=== PATIENT | female | born 1935 | race Caucasian/White ===

== ENCOUNTER 2017-06-18 08:23 | Inpatient (IN) | payer MEDICARE, SELFPAY ==
[2017-06-18] VITALS (20 sets, daily range): BP systolic 106–155; BP diastolic 46–82; PULSE 84–143; RESP 14–23; TEMP 37.2–37.7; O2SAT 92–97; BMI 28.3; BMI 26.2; BMI 26.3
[2017-06-18 08:31] LABS: Bedside Glucose 115 mg/dL (70-110)
--- NOTE | 2017-06-18 08:58 | CT_ITS ---
STUDY: CT BRAIN WITHOUT CONTRAST REASON FOR EXAM: Female, 82 years old. LEFT FACIAL DROOP,INTERMITTENT SPEECH DIFFICULTY -- HX-BREAST CA, RECTAL CA,MALIGNANT MELANOMA -- TIA,CVA RADIATION DOSAGE (If Supplied By Facility): CTDIvol = ( 20.80 ) mGy, DLP = ( 360.87 ) mGycm TECHNIQUE: Transaxial CT imaging of the brain was performed without administration of intravenous contrast material. Individualized dose optimization techniques were used for this CT. COMPARISON: October 05, 2016 FINDINGS: Again noted are the bilateral cerebral encephalomalacia and gliosis most prominent at the right parietal region, consistent with chronic infarcts. There is cerebral atrophy with widening of the extra-axial spaces and ventricular dilatation. There are areas of decreased attenuation within the white matter tracts of the supratentorial brain, consistent with microvascular disease changes. There is no intracranial hemorrhage. Normal soft tissue structures. Normal visualized paranasal sinuses. CT/Brain/Head without Contrast IMPRESSION: No acute intracranial abnormality. Bilateral chronic infarcts. Electronically Signed: Hanane Summers MD at 10:08 EDT Tel , Service support ,
--- NOTE | 2017-06-18 08:58 | EKG12_ITS ---
Test Reason : NEURO S/SX Blood Pressure : / mmHG Vent. Rate : 096 BPM Atrial Rate : 394 BPM P-R Int : 000 ms QRS Dur : 078 ms QT Int : 362 ms P-R-T Axes : 000 009 150 degrees QTc Int : 457 ms Atrial fibrillation Júnior Septal infarct , age undetermined Abnormal ECG Confirmed by GLADYS RIVERA, UJAN ([id number]), editor news KENNY TAI ([id number]) on 06/20/2017 9:04:06 AM Referred By: JIGAR Confirmed By:JUAN GRAHAM MD
[2017-06-18 09:18] LABS: Absolute Lymphocyte Count 0.62 X10^3/ul (0.83-4.51); Absolute Neutrophil Count 10.2 X10^3/uL (2.0-7.7); Basophil# 0.03 X10^3/uL; Basophil% 0.3 % (0-1); Eosinophil# 0.01 X10^3/uL; Eosinophils% 0.1 % (0-5); Hematocrit 37.9 % (37-47); Hemoglobin 11.7 g/dl (12.0-15.0); Lymphocyte # 0.62 X10^3/ul (4.0); Lymphocyte % 5.2 % (19-41); Mean Corp Hgb Conc 30.9 g/gl (32-36); Mean Corpuscular Hgb 25.9 pg (27.0-32.0); Mean Corpuscular Volume 83.8 fL (81-99); Mean Platelet Vol. 11.6 fl (6.2-12.0); Monocyte% 7.6 % (0-10); Neutrophil # 10.23 X10^3/uL (2.7-7.7); Neutrophil % 86.6 % (47-70); POSITIVE COUNT NO; POSITIVE DIFFERENTIAL NO; POSITIVE MORPHOLOGY NO; Platelet Count 211 K/mm3 (150-450); RBC Distribution Width SD 48.5 fl (35.1-43.9); Red Blood Count 4.52 M/mm3 (4.2-5.4); White Blood Count 11.8 K/mm3 (4.4-11.0)
--- NOTE | 2017-06-18 09:33 | RAD_ITS ---
STUDY: X-RAY CHEST REASON FOR EXAM: Female, 82 years old. Left-sided facial droop, intermittent speech TECHNIQUE: Single AP portable view of the chest. COMPARISON: 10/09/2016 FINDINGS: EKG leads overlie the chest There are interstitial fibrotic changes of the lungs. There is no demonstrated acute pleural abnormality, there is stable blunting of the left costophrenic angle. There is cardiomegaly. Normal mediastinum and fidencio. Normal visualized pulmonary arteries. There is atherosclerotic calcification of the aortic arch with tortuosity. There are diffuse degenerative changes of the visualized thoracic spine. There is degenerative osteoarthritis of the bilateral shoulders. There is no demonstrated abnormality of the visualized soft tissue structures of the upper abdomen. RAD/Chest 1 View IMPRESSION: Degenerative changes, as described above. No demonstrated acute cardiopulmonary process. No interval change Electronically Signed: Rickey Cabrera MD at 10:19 EDT , Service support ,
[2017-06-18 09:37] LABS: Anion Gap 5 (5-15); BUN 25 mg/dL (7-18); Calcium,Total 9.7 mg/dL (8.5-10.1); Chloride 105 mmol/L (98-107); Creatinine, Serum 1.25 mg/dL (0.55-1.02); EST Glomerular Filtration Rate 44 mL/min (>60); Est Glom Filt Rate - Afr Amer 53 mL/min (>60); Estimated Creatinine Clearance 28.21 ml/min; Glucose 113 mg/dL (74-106); Potassium 3.8 mmol/L (3.5-5.1); Sodium Level 140 mmol/L (136-145)
[2017-06-18 09:38] LABS: International Normalized Ratio 1.2; Prothrombin Time (Protime)PT. 14.7 SECONDS (11.7-14.9)
[2017-06-18 09:39] LABS: Partial Thromboplast Time 27.3 Seconds (24.1-36.2)
[2017-06-18 10:05] LABS: Bacteria 0 SEEN /hpf (None Seen); Mucous, Urine 0 SEEN /hpf (<or=2+); White Blood Cells 0 SEEN /hpf (0-5)
[2017-06-18 10:14] LABS: Color, Urine Yellow (Yellow); Glucose, Dipstick Normal (Normal); Ketone-Dipstick Negative (Negative); Leukocyte Esterase-Dipstick Negative /ul (Negative); Nitrite-Dipstick Negative (Negative); Occult Blood-Urine 25 /ul (Negative); Protein-Dipstick 100 mg/dl (Negative); Specific Gravity, Urine 1.015 (1.002-1.030); Urine Bilirubin Dipstick Negative (Negative); Urine Clarity Clear (Clear); Urine Urobilinogen Normal (Normal); Urine pH 6.5 (5.0 - 8.0)
[2017-06-18 10:21] LABS: Red Blood Cells-Urine 0-5 SEEN /hpf (0-5); Squamous Epithelial Cells - UA 0-5 SEEN /hpf (5-10)
--- NOTE | 2017-06-18 10:28 | ED.VISSUMM ---
- ER Visit Summary Date of Service: 06/18/17 Chief Complaint: Facial droop and speech difficulty History of Present Illness: The patient is a 82 F who was last seen normal at about 8:00 last night. This morning nursing noted that she appeared to have left facial droop and was more confused. They report that she had slurred speech. She was unable to ambulate on her own. History is limited as the patient is extremely poor of hearing. He does report a prior history of MO and stroke. Physical Examination: Afebrile heart rate 103 NIH stroke scale was 7 she would not answer or look to the left to voice however when an IV was started on the left she did look at her arm and withdraw and cry out Patient had left arm drift but reported normal sensation to light touch bilaterally with arms face and legs bilateral leg weakness which was symmetric I do not appreciate any facial droop or slurred speech at this time Heart irregular tachycardia Lungs are clear Abdomen soft Test Results: EKG shows atrial flutter at a rate of 96 similar to prior I do not appreciate acute ischemic changes. Laboratory studies notable for white blood cell count 11.8 creatinine 1.25. INR normal. Urinalysis normal. Troponin 0.07. CT the head shows no acute abnormality. Chest x-ray shows no acute process. Emergency Department Course and Treatment: The nursing facility reported that the patient had transient slurred speech and left facial droop. I did not appreciate this on my exam however she does seem to have symmetric left arm weakness. She will be discussed with the hospitalist and admitted for further workup. Treatment Plan: [] Disposition: Admit Impression: Stroke This note was generated with [employer] dictation software. It may contain incorrect words, spelling, and punctuation that were not noted in review of the chart prior to signing ED Disposition - Plan for ED Patient: Chief Complaint: Neuro S/Sx Referrals: Philippe Muñoz MD [Primary Care Provider] -
--- NOTE | 2017-06-18 10:32 | ED.DCSUM_ITS ---
- ER Visit Summary Date of Service: 06/18/17 Chief Complaint: Facial droop and speech difficulty History of Present Illness: The patient is a 82 F who was last seen normal at about 8:00 last night. This morning nursing noted that she appeared to have left facial droop and was more confused. They report that she had slurred speech. She was unable to ambulate on her own. History is limited as the patient is extremely poor of hearing. He does report a prior history of [place] and stroke. Physical Examination: Afebrile heart rate 103 NIH stroke scale was 7 she would not answer or look to the left to voice however when an IV was started on the left she did look at her arm and withdraw and cry out Patient had left arm drift but reported normal sensation to light touch bilaterally with arms face and legs bilateral leg weakness which was symmetric I do not appreciate any facial droop or slurred speech at this time Heart irregular tachycardia Lungs are clear Abdomen soft Test Results: EKG shows atrial flutter at a rate of 96 similar to prior I do not appreciate acute ischemic changes. Laboratory studies notable for white blood cell count 11.8 creatinine 1.25. INR normal. Urinalysis normal. Troponin 0.07. CT the head shows no acute abnormality. Chest x-ray shows no acute process. Emergency Department Course and Treatment: The nursing facility reported that the patient had transient slurred speech and left facial droop. I did not appreciate this on my exam however she does seem to have symmetric left arm weakness. She will be discussed with the hospitalist and admitted for further workup. Treatment Plan: [] Disposition: Admit Impression: Stroke This note was generated with [employer] dictation software. It may contain incorrect words, spelling, and punctuation that were not noted in review of the chart prior to signing ED Disposition - Plan for ED Patient: Chief Complaint: Neuro S/Sx Referrals: Philippe Muñoz MD [Primary Care Provider] -
--- NOTE | 2017-06-18 10:49 | CASEMGMT ---
Social Work Note In to complete initial assessment as pt is targeted for admission. Attempted to wake pt several times, and unable to arouse from sleep. Per nursing staff pt is from [facility]. SW on assigned unit to follow for assistance with d/c planning. Ana William, PLUMBING MANAGER, OTOLOGIST
--- NOTE | 2017-06-18 12:18 | ECHOD_ITS ---
Reason For Study: TIA/CVA Procedure This was a 2D Doppler, Color Flow transthoracic echocardiogram. The study was technically difficult. Due to double mastectomy and body habitus. Exam performed portable in patient room. Left Ventricle Normal LV size. Left ventricular systolic function is normal. The estimated ejection fraction is 65 %. Unable to assess diastolic dysfunction. No regional wall motion abnormalities noted. Right Ventricle Normal RV size. Normal systolic function. Atria The left atrium is moderately enlarged. The right atrium is moderately enlarged. No doppler evidence for ASD. Mitral Valve There is no mitral annular calcification. Moderate focal mitral valve calcification of the anterior leaflet. Mild (1+) mitral valve insufficiency. Tricuspid Valve Normal tricuspid valve. Trivial tricuspid valve insufficiency. Right ventricular systolic pressure estimated to be 42 mmHg. Aortic Valve Trisinus/trileaflet aortic valve. Moderate diffuse aortic valve thickening. Moderate diffuse aortic valve calcification. Moderate aortic stenosis. Trivial aortic valve insufficiency. Pulmonic Valve The pulmonic valve is not well visualized. Trivial pulmonic valve insufficiency. Great Vessels Normal sized aortic root. Pericardium/Pleural No pericardial effusion. MMode/2D Measurements & Calculations LVIDd: 4.0 cm IVSd: 1.4 cm LVOT diam: 1.8 cm LVIDs: 2.9 cm LVPWd: 1.2 cm LVOT area: 2.5 cm2 RVDd: 3.4 cm FS: 27.3 % Ao root diam: 3.1 cm LAV(MOD-bp): 66.8 ml LA A4 area: 21.0 cm2 LA dimension: 4.5 cm LAV(MOD-bp) Indexed: 39.3 ml/m2 LAV(MOD-sp2): 78.9 ml LAV(MOD-sp4): 53.2 ml RA A4 area: 18.6 cm2 Doppler Measurements & Calculations MV E max geoffrey: 118.6 cm/sec Ao V2 max: 165.7 cm/sec LV V1 max: 85.5 cm/sec Ao max P.0 mmHg LV V1 max P.9 mmHg JAMES(V,D): 1.3 cm2 MR max geoffrey: 464.0 cm/sec PA V2 max: 68.7 cm/sec TR max geoffrey: 313.0 cm/sec MR max P.1 mmHg TR max P.2 mmHg Interpretation Summary The study was technically difficult. Left ventricular systolic function is normal. The estimated ejection fraction is 65 %. The left atrium is moderately enlarged. The right atrium is moderately enlarged. Moderate focal mitral valve calcification of the anterior leaflet. Mild (1+) mitral valve insufficiency. Trivial tricuspid valve insufficiency. Moderate aortic stenosis. Trivial aortic valve insufficiency. Trivial pulmonic valve insufficiency. Right ventricular systolic pressure estimated to be 42 mmHg. Ordering Physician: Tito Eisenberg Referring Physician: Philippe Muñoz Performed By: Park Pearl RDCS, RVT
--- NOTE | 2017-06-18 15:08 | PCM.HP.STD ---
Problem List (1) Facial droop Status: Acute (2) History of TIA (transient ischemic attack) Status: Chronic (3) Hypertension Status: Chronic (4) Dyslipidemia Status: Chronic (5) Community acquired bacterial pneumonia Status: Acute (6) History of breast cancer Status: Chronic History of Present Illness Date of Admission: 06/18/17 Chief Complaint: left facial droop The patient is a 82 year old F pt noted to have left facial droop and slurred speech by staff at [facility]. Patient is confused and unable to provide any history. It was noted by the ED physician of having left-sided neglect plus weakness of left arm. Pt admitted for further CVA work up.[] Past Medical History Past Medical History (Chronic Problems): Chronic Problems History of TIA (transient ischemic attack) (Chronic) Hypertension (Chronic) Dyslipidemia (Chronic) Colostomy in place (Chronic) History of breast cancer (Chronic) Allergies diazepam [From Valium] Allergy (Verified 06/18/17 08:35) Unknown diphenhydramine HCl [From Benadryl] Allergy (Verified 06/18/17 08:35) Unknown Home Medications: Ambulatory Orders Medication Instructions Recorded Atenolol [Tenormin (beta denita)] 25 mg PO BID 02/10/13 Clopidogrel Bisulfate [Plavix] 75 mg PO DAILY 02/10/13 Rosuvastatin Calcium [Crestor] 40 mg PO QHS 02/10/13 Cyanocobalamin (Vitamin B-12) 1,000 mcg PO DAILY 02/10/16 [Vitamin B-12] Benzonatate [Tessalon Perle] 100 mg PO TID PRN PRN 05/09/16 Albuterol Inhaler [Ventolin Hfa] 1 - 2 puff INHALATION Q4H PRN PRN 05/10/16 #1 inhaler Acetaminophen [Mapap] 1,000 mg PO TID PRN PRN 10/05/16 Montelukast Sodium [Singulair] 10 mg PO QHS 10/05/16 Potassium Chloride [K-Dur] 10 meq PO DAILY 10/05/16 Saliva Stimulant [Biotene 1 spray MM QHS PRN 10/05/16 Moisturizing Mouth] Torsemide [Demadex] 40 mg PO DAILY 10/05/16 Amlodipine [Norvasc] 5 mg PO DAILY 06/18/17 Calcitriol [Rocaltrol] 0.25 mcg PO DAILY 06/18/17 Surgical History: mastectomy Smoking Status: Never smoker - *Family History Maternal History Items: No pertinent history, - - unable to obtain given confusion. Paternal History Items: No pertinent history, - Review of Systems Unable to obtain accurate/complete ROS d/t: unable to get a ROS, d/t confusion. VTE Information - Inpt Only VTE Present on Admission: No VTE Pharm Prophylaxis ordered?: Yes Patient Problems: Active and Suspected Problems Facial droop (Acute) - Physical Exam General: Confused, - - saying she's going to use a pipe organ builder's knife. threatening to hit myself and staff. HEENT: Atraumatic, Normocephalic, - - amblyopia. Oral: Moist Mucosa, No Gingival or Mucosal Lesions/ Ulcerations, - - edentulous. Neck: No Nodes, Thyroid Normal Size and Texture Lungs: Clear to auscultation, Normal air movement, No rhonchi, No wheeze Cardiovascular: Regular rate, Regular Rhythm, Normal S1, Normal S2, No murmurs Abdomen: Bowel Sounds Present, Soft, Non Tender, Non-Distended, No Hepato-splenomegaly Extremities: No edema, No Calf Tenderness Skin: No rashes, No breakdown Musculoskeletal: No Tenderness to Palpation of Joints or Extremities, No Muscle Wasting Neurological: - - limited given confusion. moves all extemities spontaneously. Psych/Mental Status: Agitated Vital Signs Temp Pulse Resp BP Pulse Ox 37.3 C H 96 18 131/79 H 96 06/18/17 11:54 06/18/17 11:54 06/18/17 12:25 06/18/17 11:54 06/18/17 11:54 Oxygen Flow Rate (L/min) 2 Oxygen Delivery Method Nasal Cannula Weight: 67.2 kg Body Mass Index (BMI) 26.2 Clinical Impression(s) from Imaging Studies Brain CT 06/18/17 08:58 IMPRESSION: No acute intracranial abnormality. Bilateral chronic infarcts. Electronically Signed: Hanane Summers MD at 10:08 EDT Tel , Service support , Chest X-Ray 06/18/17 09:33 IMPRESSION: Degenerative changes, as described above. No demonstrated acute cardiopulmonary process. No interval change Electronically Signed: Rickey Cabrera MD at 10:19 EDT , Service support , Assessment/Plan Active and Suspected Problems Facial droop (Acute) 1. Left facial droop limited exam d/t confusion and edentulous-state pt spontaneously moves left side. Noted left-sided neglect by ED physician. I am not sure there is actual neglect complete CVA work up with MRI brain, MRA H+N, echo if unable to do MRIs d/t confusion, then repeat CT 2. CKD 3 stable 3. Dementia unclear what patient's baseline is avoid potentiating meds no Benzodiazepines. 4. DVT proph: LMWH Code Visit Inpatient E&M: 04635 Init Hosp L3
--- NOTE | 2017-06-18 15:20 | HP.PCM_ITS ---
Problem List (1) Facial droop Status: Acute (2) History of TIA (transient ischemic attack) Status: Chronic (3) Hypertension Status: Chronic (4) Dyslipidemia Status: Chronic (5) Community acquired bacterial pneumonia Status: Acute (6) History of breast cancer Status: Chronic History of Present Illness Date of Admission: 06/18/17 Chief Complaint: left facial droop The patient is a 82 year old F pt noted to have left facial droop and slurred speech by staff at [facility]. Patient is confused and unable to provide any history. It was noted by the ED physician of having left-sided neglect plus weakness of left arm. Pt admitted for further CVA work up.[] Past Medical History Past Medical History (Chronic Problems): Chronic Problems History of TIA (transient ischemic attack) (Chronic) Hypertension (Chronic) Dyslipidemia (Chronic) Colostomy in place (Chronic) History of breast cancer (Chronic) Allergies diazepam [From Valium] Allergy (Verified 06/18/17 08:35) Unknown diphenhydramine HCl [From Benadryl] Allergy (Verified 06/18/17 08:35) Unknown Home Medications: Ambulatory Orders Medication Instructions Recorded Atenolol [Tenormin (beta denita)] 25 mg PO BID 02/10/13 Clopidogrel Bisulfate [Plavix] 75 mg PO DAILY 02/10/13 Rosuvastatin Calcium [Crestor] 40 mg PO QHS 02/10/13 Cyanocobalamin (Vitamin B-12) 1,000 mcg PO DAILY 02/10/16 [Vitamin B-12] Benzonatate [Tessalon Perle] 100 mg PO TID PRN PRN 05/09/16 Albuterol Inhaler [Ventolin Hfa] 1 - 2 puff INHALATION Q4H PRN PRN 05/10/16 #1 inhaler Acetaminophen [Mapap] 1,000 mg PO TID PRN PRN 10/05/16 Montelukast Sodium [Singulair] 10 mg PO QHS 10/05/16 Potassium Chloride [K-Dur] 10 meq PO DAILY 10/05/16 Saliva Stimulant [Biotene 1 spray MM QHS PRN 10/05/16 Moisturizing Mouth] Torsemide [Demadex] 40 mg PO DAILY 10/05/16 Amlodipine [Norvasc] 5 mg PO DAILY 06/18/17 Calcitriol [Rocaltrol] 0.25 mcg PO DAILY 06/18/17 Surgical History: mastectomy Smoking Status: Never smoker - *Family History Maternal History Items: No pertinent history, - - unable to obtain given confusion. Paternal History Items: No pertinent history, - Review of Systems Unable to obtain accurate/complete ROS d/t: unable to get a ROS, d/t confusion. VTE Information - Inpt Only VTE Present on Admission: No VTE Pharm Prophylaxis ordered?: Yes Patient Problems: Active and Suspected Problems Facial droop (Acute) - Physical Exam General: Confused, - - saying she's going to use a make ready worker's knife. threatening to hit myself and staff. HEENT: Atraumatic, Normocephalic, - - amblyopia. Oral: Moist Mucosa, No Gingival or Mucosal Lesions/ Ulcerations, - - edentulous. Neck: No Nodes, Thyroid Normal Size and Texture Lungs: Clear to auscultation, Normal air movement, No rhonchi, No wheeze Cardiovascular: Regular rate, Regular Rhythm, Normal S1, Normal S2, No murmurs Abdomen: Bowel Sounds Present, Soft, Non Tender, Non-Distended, No Hepato- splenomegaly Extremities: No edema, No Calf Tenderness Skin: No rashes, No breakdown Musculoskeletal: No Tenderness to Palpation of Joints or Extremities, No Muscle Wasting Neurological: - - limited given confusion. moves all extemities spontaneously. Psych/Mental Status: Agitated Vital Signs Temp Pulse Resp BP Pulse Ox 37.3 C H 96 18 131/79 H 96 06/18/17 11:54 06/18/17 11:54 06/18/17 12:25 06/18/17 11:54 06/18/17 11:54 Oxygen Flow Rate (L/min) 2 Oxygen Delivery Method Nasal Cannula Weight: 67.2 kg Body Mass Index (BMI) 26.2 Clinical Impression(s) from Imaging Studies Brain CT 06/18/17 08:58 IMPRESSION: No acute intracranial abnormality. Bilateral chronic infarcts. Electronically Signed: Hanane Summers MD at 10:08 EDT Tel , Service support , Chest X-Ray 06/18/17 09:33 IMPRESSION: Degenerative changes, as described above. No demonstrated acute cardiopulmonary process. No interval change Electronically Signed: Rickey Cabrera MD at 10:19 EDT , Service support , Assessment/Plan Active and Suspected Problems Facial droop (Acute) 1. Left facial droop * limited exam d/t confusion and edentulous-state * pt spontaneously moves left side. Noted left-sided neglect by ED physician. I am not sure there is actual neglect * complete CVA work up with MRI brain, MRA H+N, echo * if unable to do MRIs d/t confusion, then repeat CT 2. CKD 3 * stable 3. Dementia * unclear what patient's baseline is * avoid potentiating meds * no Benzodiazepines. 4. DVT proph: * LMWH Code Visit Inpatient E&M: 51063 Init Hosp L3
[2017-06-18] MEDS: amLODIPine 5 MG Tablet PO (18:31)
[2017-06-18] MEDS: Clopidogrel Bisulfate 75 MG Tablet PO (18:31)
[2017-06-18] MEDS: Cyanocobalamin 500 MCG Tablet 1000 MCG PO (18:32)
[2017-06-18] MEDS: Furosemide 80 MG Tablet PO (18:32)
[2017-06-19] VITALS (13 sets, daily range): BP systolic 121–132; BP diastolic 45–84; PULSE 84–108; RESP 16–20; TEMP 36.8–37.3; O2SAT 92–97; BMI 26.2
[2017-06-19 07:00] LABS: Cholesterol 111 mg/dL (200); High Density Lipoprotein 56 mg/dL; Triglycerides 89 mg/dL; Very Low Density Lipoprotein 18 mg/dL (5-40)
--- NOTE | 2017-06-19 08:00 | MRI_ITS ---
STUDY: MRI BRAIN WITHOUT CONTRAST REASON FOR EXAM: Female, 82 years old. CONFUSION,SLURRED SPEECH., LEFT WEAKNESS. Prior stroke and history of breast CA TECHNIQUE: Standardized multiplanar fat and water weighted pulse sequences were obtained. COMPARISON: CT of the head dated June 18, 2017 FINDINGS: There is mild cerebral atrophy with widening of the extra-axial spaces and ventricular dilatation. There are multiple white matter hyperintensities, distributed throughout the deep white matter tracts of the cerebral hemispheres, consistent with moderate chronic white matter ischemic changes. There is now hyperintense diffusion signal involving the right temporal occipital region. There is hyperintense signal on the ADC map and FLAIR sequence. Again noted are the bilateral multiterritorial encephalomalacia and gliosis, consistent with chronic infarcts. These include right frontoparietal left medial frontal and left occipital regions. There is no extra-axial fluid accumulation. Normal flow voids within the major intracranial circulation suggesting patency by spin echo criteria. Normal sella turcica, pituitary gland, infundibular stalk, optic chiasm and hypothalamus. Normal tectal plate and pineal gland. There is mucoperiosteal inflammatory disease of the paranasal sinuses consistent with mild chronic sinusitis. MRI/Brain without Contrast IMPRESSION: Right temporal occipital edema. Leading Differential consideration is subacute infarct. Follow-up to document typical evolution is recommended. N.B. : The above information has been verbally conveyed by Hanane Summers MD to Dr. Eisenberg, Covering Physician, on 06/19/2017 12:05:53 (ET). Electronically Signed: Hanane Summers MD at 12:06 EDT Tel , Service support , N.B. : The above information has been verbally conveyed by Hanane Summers MD to Dr. Eisenberg, Covering Physician, on 06/19/2017 12:05:53 (ET).
--- NOTE | 2017-06-19 08:00 | MRI_ITS ---
STUDY: MRA OF THE HEAD WITHOUT CONTRAST REASON FOR EXAM: Female, 82 years old. CONFUSION,SLURRED SPEECH., LEFT WEAKNESS. Prior stroke and history of breast CA. TECHNIQUE: 3-D [id number] (TOF) imaging was performed with MIPs. The study was performed unenhanced. COMPARISON: None. FINDINGS: Normal bilateral petrous carotid arteries. There is atheromatous plaque formation of the right cavernous carotid artery, with a mild stenosis (less than 50%). There is atheromatous plaque formation of the left cavernous carotid artery, with a mild stenosis (less than 50%). Normal right A1 segments of the anterior cerebral artery. Irregularity left A1 segments of the anterior cerebral artery. Absent left A2 segments of the anterior cerebral arteries. Occlusion of the right M1 segments of the middle cerebral arteries, with a normal M1 bifurcation. Normal left M1 and M2 segments of the middle cerebral arteries, with a normal M1 bifurcation. There is non-visualization of the right posterior communicating artery (PCOM). There is non-visualization of the left posterior communicating artery (PCOM). Small right vertebral artery. Normal left vertebral artery. There is tortuosity with elongation of the basilar artery. There is occlusion of the P2 segment of the right posterior cerebral artery. Patent left NUTRITIONALIST. 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 Electronically Signed: Hanane Summers MD at 12:06 EDT Tel , Service support ,
[2017-06-19] MEDS: Atenolol 50 MG Tablet PO ×2 (10:45→22:27)
[2017-06-19] MEDS: Cyanocobalamin 500 MCG Tablet 1000 MCG PO (10:45)
[2017-06-19] MEDS: Enoxaparin 30 MG/0.3 ML Syringe SC (10:45)
[2017-06-19] MEDS: amLODIPine 5 MG Tablet PO (10:45)
[2017-06-19] MEDS: Furosemide 80 MG Tablet PO (10:45)
[2017-06-19] MEDS: Clopidogrel Bisulfate 75 MG Tablet PO (10:45)
--- NOTE | 2017-06-19 12:42 | PCM.PROGNOTE ---
<Ana Buckley - Last Filed: 06/19/17 13:21> Patient Problems: Active and Suspected Problems Facial droop (Acute) Subjective: Patient seen and examined. Mental status improved. Sitter at bedside for safety states patient continues to be confused intermittently, no combative behavior. Patient with continued left-sided weakness/neglect however able to move left upper and left lower extremity spontaneously. Neurology consult pending. - Physical Exam General: Alert, Cooperative, No apparent distress HEENT: Atraumatic, PERRLA, EOMI, Normocephalic Neck: Supple, No JVD, Negative Carotid Bruits Lungs: Clear to auscultation, Diminished Cardiovascular: - - A. fib, rate controlled. Abdomen: Bowel Sounds Present, Soft, Non Tender, Non-Distended Extremities: No clubbing, No cyanosis, No edema, Capillary Refill Less than 3 Seconds Skin: No rashes, No breakdown Musculoskeletal: No Tenderness to Palpation of Joints or Extremities Neurological: Cranial nerves II-XII grossly intact, - - Patient continues to have left-sided neglect, weakness. Psych/Mental Status: Appropriate Vital Signs Temp Pulse Resp BP Pulse Ox 98.2 F 90 18 126/84 H 95 06/19/17 10:40 06/19/17 11:05 06/19/17 10:40 06/19/17 10:40 06/19/17 10:40 Oxygen Flow Rate (L/min) 2 Oxygen Delivery Method Nasal Cannula Weight: 67.2 kg Body Mass Index (BMI) 26.2 Intake and Output for Last 24 Hours 06/17/17 06/18/17 06/19/17 23:59 23:59 23:59 Intake Total 340 / 340 390 / 390 Output Total 1025 / 1025 300 / 300 Balance -685 / -685 90 / 90 Laboratory Tests Past 24 Hrs 06/19/17 05:43 Triglycerides 89 Cholesterol 111 LDL Cholesterol 37 VLDL Cholesterol 18 HDL Cholesterol 56 Medical Necessity - Tobacco Use Smoking Status: Never smoker Assessment/Plan Active and Suspected Problems Facial droop (Acute) Patient is a 82 year old female admitted 06/18/2017 from assisted living facility due to left facial droop. She was also noted to have confusion and left-sided neglect. Her past medical history includes history of TIA, hypertension, hyperlipidemia, history of breast cancer status post mastectomy, history of rectal cancer status post colectomy with colostomy, history of atrial fibrillation, dementia, chronic kidney disease stage III. 1. Acute ischemic right temporal occipital CVA-MRI of brain showed right temporal occipital edema. MRA of head that showed less than 50% carotid stenosis bilaterally. Right P2 occlusion. Right M1 occlusion. Left A2 occlusion. Neurology consulted. Echocardiogram report pending. Continue aspirin, statin, Plavix. PT/OT/ST. 2. Dementia-intermittent periods of confusion, agitation. Unclear what patient's baseline is. Not on home medication regimen. Sitter at bedside for safety. 3. Chronic kidney disease stage III-stable, monitor BMP. 4. Hypertension-stable, continue home regimen. 5. Hyperlipidemia-continue statin. 6. Paroxysmal atrial fibrillation-patient has a documented history of atrial fibrillation. Rate controlled. Continue atenolol. Not on anticoagulation given age and risk for falls. Continue Lovenox subcu. 7. CAD-continue atenolol, Plavix, statin, torsemide. 8. History of rectal cancer status post colectomy with colostomy/history of breast cancer status post mastectomy DVT prophylaxis-Lovenox subcu. This patient was seen by CHRIS King under the supervision of Dr. Eisenbreg. <Tito Eisenberg - Last Filed: 06/19/17 15:46> - Physical Exam General: Alert, Oriented x3, Cooperative, No apparent distress HEENT: Atraumatic, Normocephalic, - - no icterus Lungs: Clear to auscultation, Diminished Cardiovascular: - Abdomen: Bowel Sounds Present, Soft, Non Tender, Non-Distended Extremities: No edema, No Calf Tenderness Skin: No rashes, No breakdown Neurological: Motor Exam 5/5 strength throughout, Muscle tone normal, Sensory exam intact to light touch and pain, - Psych/Mental Status: Normal Affect, Appropriate Vital Signs Temp Pulse Resp BP Pulse Ox 37.2 C 84 18 121/45 H 93 06/19/17 14:40 06/19/17 14:40 06/19/17 14:40 06/19/17 14:40 06/19/17 14:40 Oxygen Flow Rate (L/min) 2 Oxygen Delivery Method Room Air Weight: 67.2 kg Body Mass Index (BMI) 26.2 Intake and Output for Last 24 Hours 06/17/17 06/18/17 06/19/17 23:59 23:59 23:59 Intake Total 340 / 340 390 / 390 Output Total 1025 / 1025 300 / 300 Balance -685 / -685 90 / 90 Laboratory Tests Past 24 Hrs 06/19/17 05:43 Triglycerides 89 Cholesterol 111 LDL Cholesterol 37 VLDL Cholesterol 18 HDL Cholesterol 56 Assessment/Plan Patient seen and examined independent. Agree with the above note by the nurse practitioner. 1. Subacute right temporal occipital CVA neuro recs DAPT for now, then oral anticoag on HIS 2. CKD 3 stable 3. Dementia unclear what patient's baseline is avoid potentiating meds no Benzodiazepines. much better today. A+Ox3. 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 4. DVT proph: LMWH Code Visit Inpatient E&M: 37093 Subs Hosp L3
--- NOTE | 2017-06-19 13:04 | PN_ITS ---
Addendum entered and electronically signed by CHRIS King 06/19/17 13:22: Code Visit Additional diagnosis: Severe protein calorie malnutrition- nutrition consult. Original Note: <Ana Buckley - Last Filed: 06/19/17 13:21> Patient Problems: Active and Suspected Problems Facial droop (Acute) Subjective: Patient seen and examined. Mental status improved. Sitter at bedside for safety states patient continues to be confused intermittently, no combative behavior. Patient with continued left-sided weakness/neglect however able to move left upper and left lower extremity spontaneously. Neurology consult pending. - Physical Exam General: Alert, Cooperative, No apparent distress HEENT: Atraumatic, PERRLA, EOMI, Normocephalic Neck: Supple, No JVD, Negative Carotid Bruits Lungs: Clear to auscultation, Diminished Cardiovascular: - - A. fib, rate controlled. Abdomen: Bowel Sounds Present, Soft, Non Tender, Non-Distended Extremities: No clubbing, No cyanosis, No edema, Capillary Refill Less than 3 Seconds Skin: No rashes, No breakdown Musculoskeletal: No Tenderness to Palpation of Joints or Extremities Neurological: Cranial nerves II-XII grossly intact, - - Patient continues to have left-sided neglect, weakness. Psych/Mental Status: Appropriate Vital Signs Temp Pulse Resp BP Pulse Ox 98.2 F 90 18 126/84 H 95 06/19/17 10:40 06/19/17 11:05 06/19/17 10:40 06/19/17 10:40 06/19/17 10:40 Oxygen Flow Rate (L/min) 2 Oxygen Delivery Method Nasal Cannula Weight: 67.2 kg Body Mass Index (BMI) 26.2 Intake and Output for Last 24 Hours 06/17/17 06/18/17 06/19/17 23:59 23:59 23:59 Intake Total 340 / 340 390 / 390 Output Total 1025 / 1025 300 / 300 Balance -685 / -685 90 / 90 Laboratory Tests Past 24 Hrs 06/19/17 05:43 Triglycerides 89 Cholesterol 111 LDL Cholesterol 37 VLDL Cholesterol 18 HDL Cholesterol 56 Medical Necessity - Tobacco Use Smoking Status: Never smoker Assessment/Plan Active and Suspected Problems Facial droop (Acute) Patient is a 82 year old female admitted 06/18/2017 from assisted living facility due to left facial droop. She was also noted to have confusion and left-sided neglect. Her past medical history includes history of TIA, hypertension, hyperlipidemia, history of breast cancer status post mastectomy, history of rectal cancer status post colectomy with colostomy, history of atrial fibrillation, dementia, chronic kidney disease stage III. 1. Acute ischemic right temporal occipital CVA-MRI of brain showed right temporal occipital edema. MRA of head that showed less than 50% carotid stenosis bilaterally. Right P2 occlusion. Right M1 occlusion. Left A2 occlusion. Neurology consulted. Echocardiogram report pending. Continue aspirin, statin, Plavix. PT/OT/ST. 2. Dementia-intermittent periods of confusion, agitation. Unclear what patient 's baseline is. Not on home medication regimen. Sitter at bedside for safety. 3. Chronic kidney disease stage III-stable, monitor BMP. 4. Hypertension-stable, continue home regimen. 5. Hyperlipidemia-continue statin. 6. Paroxysmal atrial fibrillation-patient has a documented history of atrial fibrillation. Rate controlled. Continue atenolol. Not on anticoagulation given age and risk for falls. Continue Lovenox subcu. 7. CAD-continue atenolol, Plavix, statin, torsemide. 8. History of rectal cancer status post colectomy with colostomy/history of breast cancer status post mastectomy DVT prophylaxis-Lovenox subcu. This patient was seen by CHRIS King under the supervision of Dr. Eisenberg. <Tito Eisenberg - Last Filed: 06/19/17 15:46> - Physical Exam General: Alert, Oriented x3, Cooperative, No apparent distress HEENT: Atraumatic, Normocephalic, - - no icterus Lungs: Clear to auscultation, Diminished Cardiovascular: - Abdomen: Bowel Sounds Present, Soft, Non Tender, Non-Distended Extremities: No edema, No Calf Tenderness Skin: No rashes, No breakdown Neurological: Motor Exam 5/5 strength throughout, Muscle tone normal, Sensory exam intact to light touch and pain, - Psych/Mental Status: Normal Affect, Appropriate Vital Signs Temp Pulse Resp BP Pulse Ox 37.2 C 84 18 121/45 H 93 06/19/17 14:40 06/19/17 14:40 06/19/17 14:40 06/19/17 14:40 06/19/17 14:40 Oxygen Flow Rate (L/min) 2 Oxygen Delivery Method Room Air Weight: 67.2 kg Body Mass Index (BMI) 26.2 Intake and Output for Last 24 Hours 06/17/17 06/18/17 06/19/17 23:59 23:59 23:59 Intake Total 340 / 340 390 / 390 Output Total 1025 / 1025 300 / 300 Balance -685 / -685 90 / 90 Laboratory Tests Past 24 Hrs 06/19/17 05:43 Triglycerides 89 Cholesterol 111 LDL Cholesterol 37 VLDL Cholesterol 18 HDL Cholesterol 56 Assessment/Plan Patient seen and examined independent. Agree with the above note by the nurse practitioner. 1. Subacute right temporal occipital CVA * neuro recs DAPT for now, then oral anticoag * on HIS 2. CKD 3 * stable 3. Dementia * unclear what patient's baseline is * avoid potentiating meds * no Benzodiazepines. * much better today. A+Ox3. 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 4. DVT proph: * LMWH Code Visit Inpatient E&M: 60217 Subs Hosp L3
--- NOTE | 2017-06-19 13:33 | PCM.CONS.GEN ---
Reason for Consult Date of Consultation: 06/19/17 Reason for Consultation: cva History of Present Illness: The patient is a 82 year old F presents from longterm. pt unable to give history. denies pain, wants to return home. per admit h&p:The patient is a 82 year old F pt noted to have left facial droop and slurred speech by staff at [facility]. Patient is confused and unable to provide any history. It was noted by the ED physician of having left-sided neglect plus weakness of left arm. Pt admitted for further CVA work up. Past Medical History Past Medical History (Chronic Problems): Chronic Problems History of TIA (transient ischemic attack) (Chronic) Hypertension (Chronic) Dyslipidemia (Chronic) Colostomy in place (Chronic) History of breast cancer (Chronic) Allergies diazepam [From Valium] Allergy (Verified 06/18/17 08:35) Unknown diphenhydramine HCl [From Benadryl] Allergy (Verified 06/18/17 08:35) Unknown Home Medications: Ambulatory Orders Medication Instructions Recorded Atenolol [Tenormin (beta gamaliel)] 25 mg PO BID 02/10/13 Clopidogrel Bisulfate [Plavix] 75 mg PO DAILY 02/10/13 Rosuvastatin Calcium [Crestor] 40 mg PO QHS 02/10/13 Cyanocobalamin (Vitamin B-12) 1,000 mcg PO DAILY 02/10/16 [Vitamin B-12] Benzonatate [Tessalon Perle] 100 mg PO TID PRN PRN 05/09/16 Albuterol Inhaler [Ventolin Hfa] 1 - 2 puff INHALATION Q4H PRN PRN 05/10/16 #1 inhaler Acetaminophen [Mapap] 1,000 mg PO TID PRN PRN 10/05/16 Montelukast Sodium [Singulair] 10 mg PO QHS 10/05/16 Potassium Chloride [K-Dur] 10 meq PO DAILY 10/05/16 Saliva Stimulant [Biotene 1 spray MM QHS PRN 10/05/16 Moisturizing Mouth] Torsemide [Demadex] 40 mg PO DAILY 10/05/16 Amlodipine [Norvasc] 5 mg PO DAILY 06/18/17 Calcitriol [Rocaltrol] 0.25 mcg PO DAILY 06/18/17 Surgical History: mastectomy Smoking Status: Never smoker - *Family History Maternal History Items: No pertinent history, - - unable to obtain given confusion. Paternal History Items: No pertinent history, - Review of Systems Unable to obtain accurate/complete ROS d/t: ms Patient Problems: Active and Suspected Problems Facial droop (Acute) - Physical Exam Neurological: Deep Tendon Reflexes 2+/4 and Symmetrical - left hemianopsia, Motor Exam 5/5 strength throughout, - Vital Signs Temp Pulse Resp BP Pulse Ox 36.8 C 90 18 126/84 H 95 06/19/17 10:40 06/19/17 11:05 06/19/17 10:40 06/19/17 10:40 06/19/17 10:40 Oxygen Flow Rate (L/min) 2 Oxygen Delivery Method Nasal Cannula Weight: 67.2 kg Body Mass Index (BMI) 26.2 Intake and Output for Last 24 Hours 06/17/17 06/18/17 06/19/17 23:59 23:59 23:59 Intake Total 340 / 340 390 / 390 Output Total 1025 / 1025 300 / 300 Balance -685 / -685 90 / 90 Laboratory Tests Past 24 Hrs 06/19/17 05:43 Triglycerides 89 Cholesterol 111 LDL Cholesterol 37 VLDL Cholesterol 18 HDL Cholesterol 56 Current Medications Generic Name Dose Route Start Last Admin Trade Name Freq PRN Reason Stop Dose Admin Acetaminophen 500 - 1,000 mg 06/18/17 12:18 Tylenol PO TID PRN PRN PAIN/FEVER Albuterol/Ipratropium 3 ml 06/18/17 12:18 Duoneb INHALATION Q6H.RT PRN SOB &/OR WHEEZING Amlodipine Besylate 5 mg 06/18/17 12:45 06/19/17 10:45 Norvasc PO 5 mg DAILY KENNETH Administration Aspirin 81 mg 06/20/17 08:00 Ecotrin PO DAILY@0800 KENNETH Atenolol 50 mg 06/18/17 12:45 06/19/17 10:45 Tenormin (Beta Gamaliel) PO 50 mg BID KENNETH Administration Atorvastatin Calcium 80 mg 06/18/17 22:00 06/18/17 22:54 Lipitor PO Not Given QHS KENNETH Benzonatate 100 mg 06/18/17 12:18 Tessalon Perle PO TID PRN PRN COUGH Clopidogrel Bisulfate 75 mg 06/18/17 12:45 06/19/17 10:45 Plavix PO 75 mg DAILY KENNETH Administration Cyanocobalamin 1,000 mcg 06/18/17 13:00 06/19/17 10:45 Vitamin B12 PO 1,000 mcg DAILY KENNETH Administration Enoxaparin Sodium 30 mg 06/19/17 10:00 06/19/17 10:45 Lovenox SC 30 mg DAILY@1000 KENNETH Administration Furosemide 80 mg 06/18/17 13:00 06/19/17 10:45 Lasix PO 80 mg DAILY KENNETH Administration Magnesium Hydroxide 30 ml 06/18/17 12:18 Milk Of Magnesia PO DAILY PRN Constipation Montelukast Sodium 10 mg 06/18/17 22:00 06/18/17 22:54 Singulair PO Not Given HS KENNETH Nutritional Formula (Lactose Free) 120 ml 06/19/17 14:00 Ensure Enlive PO 4X/DAY KENNETH Potassium Chloride 10 meq 06/18/17 12:45 06/19/17 10:45 K-Dur PO 10 meq DAILY KENNETH Administration Sodium Chloride 5 - 30 ml 06/18/17 15:06 IV UD PRN SALINE FLUSH mri reviewed, old right mca infarct, acute right collar setter overlock infarct Assessment/Plan Active and Suspected Problems Facial droop (Acute) multiple strokes, new right collar setter overlock infarct, history of afib recommend in one week discontinue antiplatelet therapy including asa and plavix and initiate oac unless other bleeding risk. pt/ot/speech therapy echo
[2017-06-19] MEDS: Montelukast 10 MG Tablet PO (22:27)
[2017-06-19] MEDS: Atorvastatin Calcium 80 MG Tablet PO (22:27)
[2017-06-20] VITALS (13 sets, daily range): BP systolic 106–129; BP diastolic 45–82; PULSE 70–108; RESP 16–20; TEMP 36.3–37.6; O2SAT 93–99; BMI 26.2
[2017-06-20 06:46] LABS: Hematocrit 40.7 % (37-47); Hemoglobin 12.8 g/dl (12.0-15.0); Mean Corp Hgb Conc 31.4 g/gl (32-36); Mean Corpuscular Hgb 25.9 pg (27.0-32.0); Mean Corpuscular Volume 82.2 fL (81-99); Mean Platelet Vol. 11.2 fl (6.2-12.0); Platelet Count 189 K/mm3 (150-450); RBC Distribution Width SD 48.2 fl (35.1-43.9); Red Blood Count 4.95 M/mm3 (4.2-5.4); White Blood Count 14.1 K/mm3 (4.4-11.0)
[2017-06-20 07:08] LABS: Anion Gap 8 (5-15); BUN 26 mg/dL (7-18); Calcium,Total 9.3 mg/dL (8.5-10.1); Chloride 101 mmol/L (98-107); Creatinine, Serum 1.13 mg/dL (0.55-1.02); EST Glomerular Filtration Rate 49 mL/min (>60); Est Glom Filt Rate - Afr Amer 59 mL/min (>60); Glucose 107 mg/dL (74-106); Potassium 4.4 mmol/L (3.5-5.1); Sodium Level 139 mmol/L (136-145)
[2017-06-20 07:27] LABS: Scan Indicated on CBC? Y/N NO
--- NOTE | 2017-06-20 08:00 | NURSING ---
SITTER REMOVED FROM BEDSIDE.
--- NOTE | 2017-06-20 09:48 | NURSING ---
THIS RN ATTEMPTED FOR 40 MINUTES TO TRY AND GET TO TAKE MEDICATIONS. PT STATED SHE DID WAS NOT GOING TO TAKE THEM AND THAT SHE WAS GOING TO COLD CLOCK THIS NURSE WELL SHOOT HER. THIS RN NOTIFIED MD ABOUT OT NOT TAKING MEDICATIONS.
--- NOTE | 2017-06-20 11:44 | CASEMGMT ---
JOSE ANGEL spoke with Venita at [facility] and they do not have any contact people listed for patient. She said patient is normally alert and oriented. JOSE ANGEL reviewed patient's chart and she has a healthcare POA and general POA, but then she completed a revocation of her POA without completing new documents. JOSE ANGEL called the friend patient has listed on her face sheet and left her a vm requesting a return call. JOSE ANGEL also called patient's Dr.'s office and left a message with the Pricing Actuary requesting a return call to see if they have any contacts listed. Plan: Patient will need a penitentiary facility at d/c. JOSE ANGEL needs to talk with someone regarding this decision as patient is confused. She will also need insurance authorization. Fanny SOLIMAN MSW
--- NOTE | 2017-06-20 11:55 | PCM.PROGNOTE ---
<Ana Buckley - Last Filed: 06/20/17 12:04> Patient Problems: Active and Suspected Problems Facial droop (Acute) Subjective: Patient seen and examined. Alert and oriented and able to state current location and year. Patient later reported by nursing staff to be refusing medications and verbally aggressive with staff. - Physical Exam General: Alert, Oriented x3, No apparent distress HEENT: Atraumatic, PERRLA, EOMI, Normocephalic Oral: Dry Mucosa Neck: Supple, No JVD, Negative Carotid Bruits Lungs: Clear to auscultation, Diminished Cardiovascular: - - Atrial fibrillation, rate controlled. Abdomen: Bowel Sounds Present, Soft, Non Tender Extremities: No clubbing, No cyanosis, No edema, Capillary Refill Less than 3 Seconds Skin: No rashes, No breakdown Musculoskeletal: No Tenderness to Palpation of Joints or Extremities Neurological: Cranial nerves II-XII grossly intact, - - Patient continues to have left-sided neglect, weakness. Psych/Mental Status: Agitated - Intermittently Vital Signs Temp Pulse Resp BP Pulse Ox 98.9 F 98 18 115/57 L 93 06/20/17 09:00 06/20/17 11:05 06/20/17 09:00 06/20/17 09:00 06/20/17 09:00 Oxygen Flow Rate (L/min) 2 Oxygen Delivery Method Room Air Weight: 67.2 kg Body Mass Index (BMI) 26.2 Intake and Output for Last 24 Hours 06/18/17 06/19/17 06/20/17 23:59 23:59 23:59 Intake Total 340 / 340 1310 / 1310 Output Total 1025 / 1025 1250 / 1250 Balance -685 / -685 60 / 60 Laboratory Tests Past 24 Hrs 06/20/17 06/20/17 05:10 06:45 WBC 14.1 H RBC 4.95 Hgb 12.8 Hct 40.7 MCV 82.2 MCH 25.9 L MCHC 31.4 L RDW 16.0 H RDW Differential 48.2 H Plt Count 189 MPV 11.2 Sodium 139 Potassium 4.4 Chloride 101 Carbon Dioxide 30.0 Anion Gap 8 BUN 26 H Creatinine 1.13 H Estim Creat Clear Calc 31.20 Est GFR (MDRD) Af Amer 59 L Est GFR (MDRD) Non-Af 49 L BUN/Creatinine Ratio 23.0 H Glucose 107 H Calcium 9.3 Medical Necessity - Tobacco Use Smoking Status: Never smoker Assessment/Plan Active and Suspected Problems Facial droop (Acute) Patient is a 82 year old female admitted 06/18/2017 from assisted living facility due to left facial droop. She was also noted to have confusion and left-sided neglect. Her past medical history includes history of TIA, hypertension, hyperlipidemia, history of breast cancer status post mastectomy, history of rectal cancer status post colectomy with colostomy, history of atrial fibrillation, dementia, chronic kidney disease stage III. 1. Acute ischemic right temporal occipital CVA-MRI of brain showed right temporal occipital edema. MRA of head that showed less than 50% carotid stenosis bilaterally. Right P2 occlusion. Right M1 occlusion. Left A2 occlusion. Neurology consulted. Echocardiogram shows an ejection fraction of 65%, moderate mitral valve calcification, moderate aortic stenosis, RVSP estimated to be 42 mmHg.. Continue aspirin, statin, Plavix. Neurology recommending transition to oral anticoagulation and discontinuing of aspirin and Plavix in 1 week. PT/OT/ST. 2. Dementia-intermittent periods of confusion, agitation. Unclear what patient's baseline is. Not on home medication regimen. 3. Chronic kidney disease stage III-stable, monitor BMP. 4. Hypertension-stable, continue home regimen. 5. Hyperlipidemia-continue statin. 6. Paroxysmal atrial fibrillation-patient has a documented history of atrial fibrillation. Rate controlled. Continue atenolol. Continue aspirin, Plavix. Continue Lovenox subcu. plan to transition to oral anticoagulation in 1 week. 7. CAD-continue atenolol, Plavix, statin, torsemide. 8. History of rectal cancer status post colectomy with colostomy/history of breast cancer status post mastectomy DVT prophylaxis-Lovenox subcu. Discharge planning: SNF at [place] pending pre-cert. Previously from assisted living facility. This patient was seen by CHRIS King under the supervision of Dr. Eisenberg. <Tito Eisenberg - Last Filed: 06/20/17 13:22> - Physical Exam General: Alert, No apparent distress HEENT: Atraumatic, Normocephalic Oral: - - edentulous Lungs: Clear to auscultation, Normal air movement, No rhonchi, No wheeze Cardiovascular: Regular rate, Regular Rhythm, Normal S1, Normal S2, - Abdomen: Bowel Sounds Present, Soft, Non Tender, Non-Distended Extremities: No edema, No Calf Tenderness Skin: No rashes, No breakdown Vital Signs Temp Pulse Resp BP Pulse Ox 37.2 C 98 18 115/57 L 93 06/20/17 09:00 06/20/17 11:05 06/20/17 09:00 06/20/17 09:00 06/20/17 09:00 Oxygen Flow Rate (L/min) 2 Oxygen Delivery Method Room Air Weight: 67.2 kg Body Mass Index (BMI) 26.2 Intake and Output for Last 24 Hours 06/18/17 06/19/17 06/20/17 23:59 23:59 23:59 Intake Total 340 / 340 1310 / 1310 200 / 200 Output Total 1025 / 1025 1250 / 1250 Balance -685 / -685 60 / 60 200 / 200 Laboratory Tests Past 24 Hrs 06/20/17 06/20/17 05:10 06:45 WBC 14.1 H RBC 4.95 Hgb 12.8 Hct 40.7 MCV 82.2 MCH 25.9 L MCHC 31.4 L RDW 16.0 H RDW Differential 48.2 H Plt Count 189 MPV 11.2 Sodium 139 Potassium 4.4 Chloride 101 Carbon Dioxide 30.0 Anion Gap 8 BUN 26 H Creatinine 1.13 H Estim Creat Clear Calc 31.20 Est GFR (MDRD) Af Amer 59 L Est GFR (MDRD) Non-Af 49 L BUN/Creatinine Ratio 23.0 H Glucose 107 H Calcium 9.3 Assessment/Plan Patient seen and examined independently. I agree with the above COMPUTER NUMERIC CONTROL SETTER note. 1. Subacute right temporal occipital CVA neuro recs DAPT for now x1 week, then oral anticoag on HIS 2. CKD 3 stable 3. Dementia unclear what patient's baseline is avoid potentiating meds no Benzodiazepines. much better today. A+Ox3. 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 4. DVT proph: LMWH Code Visit Inpatient E&M: 06754 Subs Hosp L3
--- NOTE | 2017-06-20 12:04 | PN_ITS ---
<Ana Buckley - Last Filed: 06/20/17 12:04> Patient Problems: Active and Suspected Problems Facial droop (Acute) Subjective: Patient seen and examined. Alert and oriented and able to state current location and year. Patient later reported by nursing staff to be refusing medications and verbally aggressive with staff. - Physical Exam General: Alert, Oriented x3, No apparent distress HEENT: Atraumatic, PERRLA, EOMI, Normocephalic Oral: Dry Mucosa Neck: Supple, No JVD, Negative Carotid Bruits Lungs: Clear to auscultation, Diminished Cardiovascular: - - Atrial fibrillation, rate controlled. Abdomen: Bowel Sounds Present, Soft, Non Tender Extremities: No clubbing, No cyanosis, No edema, Capillary Refill Less than 3 Seconds Skin: No rashes, No breakdown Musculoskeletal: No Tenderness to Palpation of Joints or Extremities Neurological: Cranial nerves II-XII grossly intact, - - Patient continues to have left-sided neglect, weakness. Psych/Mental Status: Agitated - Intermittently Vital Signs Temp Pulse Resp BP Pulse Ox 98.9 F 98 18 115/57 L 93 06/20/17 09:00 06/20/17 11:05 06/20/17 09:00 06/20/17 09:00 06/20/17 09:00 Oxygen Flow Rate (L/min) 2 Oxygen Delivery Method Room Air Weight: 67.2 kg Body Mass Index (BMI) 26.2 Intake and Output for Last 24 Hours 06/18/17 06/19/17 06/20/17 23:59 23:59 23:59 Intake Total 340 / 340 1310 / 1310 Output Total 1025 / 1025 1250 / 1250 Balance -685 / -685 60 / 60 Laboratory Tests Past 24 Hrs 06/20/17 06/20/17 05:10 06:45 WBC 14.1 H RBC 4.95 Hgb 12.8 Hct 40.7 MCV 82.2 MCH 25.9 L MCHC 31.4 L RDW 16.0 H RDW Differential 48.2 H Plt Count 189 MPV 11.2 Sodium 139 Potassium 4.4 Chloride 101 Carbon Dioxide 30.0 Anion Gap 8 BUN 26 H Creatinine 1.13 H Estim Creat Clear Calc 31.20 Est GFR (MDRD) Af Amer 59 L Est GFR (MDRD) Non-Af 49 L BUN/Creatinine Ratio 23.0 H Glucose 107 H Calcium 9.3 Medical Necessity - Tobacco Use Smoking Status: Never smoker Assessment/Plan Active and Suspected Problems Facial droop (Acute) Patient is a 82 year old female admitted 06/18/2017 from assisted living facility due to left facial droop. She was also noted to have confusion and left-sided neglect. Her past medical history includes history of TIA, hypertension, hyperlipidemia, history of breast cancer status post mastectomy, history of rectal cancer status post colectomy with colostomy, history of atrial fibrillation, dementia, chronic kidney disease stage III. 1. Acute ischemic right temporal occipital CVA-MRI of brain showed right temporal occipital edema. MRA of head that showed less than 50% carotid stenosis bilaterally. Right P2 occlusion. Right M1 occlusion. Left A2 occlusion. Neurology consulted. Echocardiogram shows an ejection fraction of 65%, moderate mitral valve calcification, moderate aortic stenosis, RVSP estimated to be 42 mmHg.. Continue aspirin, statin, Plavix. Neurology recommending transition to oral anticoagulation and discontinuing of aspirin and Plavix in 1 week. PT/OT/ST. 2. Dementia-intermittent periods of confusion, agitation. Unclear what patient 's baseline is. Not on home medication regimen. 3. Chronic kidney disease stage III-stable, monitor BMP. 4. Hypertension-stable, continue home regimen. 5. Hyperlipidemia-continue statin. 6. Paroxysmal atrial fibrillation-patient has a documented history of atrial fibrillation. Rate controlled. Continue atenolol. Continue aspirin, Plavix. Continue Lovenox subcu. plan to transition to oral anticoagulation in 1 week. 7. CAD-continue atenolol, Plavix, statin, torsemide. 8. History of rectal cancer status post colectomy with colostomy/history of breast cancer status post mastectomy DVT prophylaxis-Lovenox subcu. Discharge planning: SNF at [place] pending pre-cert. Previously from assisted living facility. This patient was seen by CHRIS King under the supervision of Dr. Eisenberg. <Tito Eisenberg - Last Filed: 06/20/17 13:22> - Physical Exam General: Alert, No apparent distress HEENT: Atraumatic, Normocephalic Oral: - - edentulous Lungs: Clear to auscultation, Normal air movement, No rhonchi, No wheeze Cardiovascular: Regular rate, Regular Rhythm, Normal S1, Normal S2, - Abdomen: Bowel Sounds Present, Soft, Non Tender, Non-Distended Extremities: No edema, No Calf Tenderness Skin: No rashes, No breakdown Vital Signs Temp Pulse Resp BP Pulse Ox 37.2 C 98 18 115/57 L 93 06/20/17 09:00 06/20/17 11:05 06/20/17 09:00 06/20/17 09:00 06/20/17 09:00 Oxygen Flow Rate (L/min) 2 Oxygen Delivery Method Room Air Weight: 67.2 kg Body Mass Index (BMI) 26.2 Intake and Output for Last 24 Hours 06/18/17 06/19/17 06/20/17 23:59 23:59 23:59 Intake Total 340 / 340 1310 / 1310 200 / 200 Output Total 1025 / 1025 1250 / 1250 Balance -685 / -685 60 / 60 200 / 200 Laboratory Tests Past 24 Hrs 06/20/17 06/20/17 05:10 06:45 WBC 14.1 H RBC 4.95 Hgb 12.8 Hct 40.7 MCV 82.2 MCH 25.9 L MCHC 31.4 L RDW 16.0 H RDW Differential 48.2 H Plt Count 189 MPV 11.2 Sodium 139 Potassium 4.4 Chloride 101 Carbon Dioxide 30.0 Anion Gap 8 BUN 26 H Creatinine 1.13 H Estim Creat Clear Calc 31.20 Est GFR (MDRD) Af Amer 59 L Est GFR (MDRD) Non-Af 49 L BUN/Creatinine Ratio 23.0 H Glucose 107 H Calcium 9.3 Assessment/Plan Patient seen and examined independently. I agree with the above MOLDING PLASTERER note. 1. Subacute right temporal occipital CVA * neuro recs DAPT for now x1 week, then oral anticoag * on HIS 2. CKD 3 * stable 3. Dementia * unclear what patient's baseline is * avoid potentiating meds * no Benzodiazepines. * much better today. A+Ox3. 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 4. DVT proph: * LMWH Code Visit Inpatient E&M: 61845 Subs Hosp L3
--- NOTE | 2017-06-20 13:34 | CASEMGMT ---
SW spoke with patient, introduced self and role at [facility]. SW asked about any family or friends that SW could call. She said she has no one except her cat. JOSE ANGEL asked about the lady listed on her face sheet. She said she is a friend. JOSE ANGEL told patient she is going to need to go to a usp short term before going back to the assisted living. SW asked if she has been anywhere before. She said she was at [facility] before. SW asked if she would want to go back there and she would not. JOSE ANGEL mentioned [facility] and [facility]. She was okay with SW checking to see if they have beds available and making a referral. Fanny SOLIMAN MSW
--- NOTE | 2017-06-20 15:16 | CASEMGMT ---
SW attempted to speak w/pt, inquire if she is agreeable to go to [place]. Pt's hearing aide batteries have , however, and pt cannot hear SW. Pt told SW she wants to be put back into bed as it's bath night. SW attempted to remind pt she is in the hospital, wrote it down very large on a piece of paper. Pt could not focus on the paper however. As per RN, pt also has poor eyesight. SW called [facility] and asked them to bring pt's hearing aide batteries if possible. The medical office secretary who answered the phone said she will ask [facility] and see if [facility] can bring in some hearing aide batteries. GABY Gomez, MACHINIST MECHANIC
--- NOTE | 2017-06-20 16:24 | CASEMGMT ---
SW received a call from Adeola at patient's PCP's office and they do not have any additional contact people for patient. They did not have a copy of her POA revocation. Fanny SOLIMAN MSW
[2017-06-20] MEDS: Acetaminophen 500 MG Tablet PO (18:53)
[2017-06-21] VITALS (9 sets, daily range): BP systolic 109–157; BP diastolic 62–86; PULSE 82–108; RESP 18–20; TEMP 36.6–37.3; O2SAT 91–96; BMI 26.2
--- NOTE | 2017-06-21 00:58 | NURSING ---
Patient would not take 2200 medications for this RN. This RN attempted for a half hour. Patient was shouting out at staff.
[2017-06-21] MEDS: Ipratropium/Albuterol Sulfate 3 ML AMPUL.NEB INHALATION (04:57)
[2017-06-21 06:14] LABS: Hematocrit 42.2 % (37-47); Mean Corp Hgb Conc 30.8 g/gl (32-36); Mean Corpuscular Hgb 25.3 pg (27.0-32.0); Mean Corpuscular Volume 82.1 fL (81-99); Mean Platelet Vol. 10.7 fl (6.2-12.0); Platelet Count 228 K/mm3 (150-450); RBC Distribution Width CV 15.7 % (11.6-14.6); RBC Distribution Width SD 47.6 fl (35.1-43.9); Red Blood Count 5.14 M/mm3 (4.2-5.4); White Blood Count 12.9 K/mm3 (4.4-11.0)
[2017-06-21 06:18] LABS: Scan Indicated on CBC? Y/N NO
[2017-06-21 06:21] LABS: Anion Gap 7 (5-15); BUN 28 mg/dL (7-18); BUN/Creat Ratio 26.9 RATIO (10-20); Calcium,Total 9.4 mg/dL (8.5-10.1); Chloride 101 mmol/L (98-107); Creatinine, Serum 1.04 mg/dL (0.55-1.02); EST Glomerular Filtration Rate 54 mL/min (>60); Est Glom Filt Rate - Afr Amer 65 mL/min (>60); Glucose 104 mg/dL (74-106); Potassium 3.8 mmol/L (3.5-5.1); Sodium Level 139 mmol/L (136-145)
[2017-06-21] MEDS: Atenolol 50 MG Tablet PO (08:50)
[2017-06-21] MEDS: Aspirin E.C. 81 MG Tablet PO (08:50)
[2017-06-21] MEDS: Clopidogrel Bisulfate 75 MG Tablet PO (08:50)
[2017-06-21] MEDS: amLODIPine 5 MG Tablet PO (08:51)
[2017-06-21] MEDS: Furosemide 80 MG Tablet PO (08:51)
--- NOTE | 2017-06-21 10:13 | CASEMGMT ---
Addendum entered by Sulma Schmitz 06/21/17 12:13: JOSE ANGEL spoke w/the physician, he is going to discharge the pt today. JOSE ANGEL called Chele back with [facility], he pre-approved the pt go to go [facility] and will call the facility. SW completed the hospital exemption in [place], will continue to follow. GABY Gomez, ELECTRICAL ENGINEERING PROFESSOR Original Note: Addendum entered by Sulma Schmitz 06/21/17 11:58: SW received a call from Chele w/[facility] inquiring if pt will discharge today. SW explained does not know, can let him know once this SW knows. Chele says that if pt is not able to come today, then he will cancel the authorization and tell [facility] to just admit pt when ready, and submit for authorization from there. JOSE ANGEL will call Chele as soon as this SW knows from physician when pt is ready([facility]le: [phone]). GABY Gomez, ELECTRICAL ENGINEERING PROFESSOR Original Note: SW met w/pt in room, pt is extremely hard of hearing and does not have her hearing aides in at present. SW seems more alert and oriented today. JOSE ANGEL spoke w/pt about discharge plan, pt is agreeable to go to [facility], states she knows a lot of people there. SW explained will work on this for her. JOSE ANGEL called [facility], faxed referral. They can take pt and Alissa will start the precert. SW will continue to follow. GABY Gomez, ELECTRICAL ENGINEERING PROFESSOR
--- NOTE | 2017-06-21 13:08 | PCM.PN.HOSP ---
Patient Problems: Active and Suspected Problems Facial droop (Acute) Subjective: Taking meds today. Vitals/I&O's: Vital Signs Temp Pulse Resp BP Pulse Ox 37.1 C 82 18 119/62 96 06/21/17 12:52 06/21/17 12:52 06/21/17 12:52 06/21/17 12:52 06/21/17 12:52 Oxygen Flow Rate (L/min) 2 Oxygen Delivery Method Room Air Weight: 67.2 kg Body Mass Index (BMI) 26.2 Intake and Output for Last 24 Hours 06/19/17 06/20/17 06/21/17 23:59 23:59 23:59 Intake Total 1310 / 1310 500 / 500 450 / 450 Output Total 1250 / 1250 Balance 60 / 60 500 / 500 450 / 450 General: Alert, Confused, - - pleasant. Difficultly following directions d/t presbycusis. HEENT: Atraumatic, Normocephalic Neck: No Nodes, Thyroid Normal Size and Texture Lungs: Clear to auscultation, Normal air movement, No rhonchi, No wheeze Cardiovascular: Regular rate, Regular Rhythm, Normal S1, Normal S2, No murmurs Abdomen: Bowel Sounds Present, Soft, Non Tender, Non-Distended, No Hepato-splenomegaly Extremities: No edema, No Calf Tenderness Laboratory Results 06/21/17 05:55: WBC 12.9 H, RBC 5.14, Hgb 13.0, Hct 42.2, MCV 82.1, MCH 25.3 L, MCHC 30.8 L, RDW 15.7 H, RDW Differential 47.6 H, Plt Count 228, MPV 10.7 06/21/17 05:55: Sodium 139, Potassium 3.8, Chloride 101, Carbon Dioxide 31.0, Anion Gap 7, BUN 28 H, Creatinine 1.04 H, Estim Creat Clear Calc 33.90, Est GFR (MDRD) Af Amer 65, Est GFR (MDRD) Non-Af 54 L, BUN/Creatinine Ratio 26.9 H, Glucose 104, Calcium 9.4 Current Medications Acetaminophen (Tylenol) 500 - 1,000 mg PO TID PRN PRN PRN Reason: PAIN/FEVER Last Admin: 06/20/17 18:53 Dose: 1,000 mg Albuterol/Ipratropium (Duoneb) 3 ml INHALATION Q6H.RT PRN PRN Reason: SOB &/OR WHEEZING Last Admin: 06/21/17 04:57 Dose: 3 ml Amlodipine Besylate (Norvasc) 5 mg PO DAILY [facility] Last Admin: 06/21/17 08:51 Dose: 5 mg Aspirin (Ecotrin) 81 mg PO DAILY@0800 [facility] Last Admin: 06/21/17 08:50 Dose: 81 mg Atenolol (Tenormin (Beta Gamaliel)) 50 mg PO BID [facility] Last Admin: 06/21/17 08:50 Dose: 50 mg Atorvastatin Calcium (Lipitor) 80 mg PO QHS [facility] Last Admin: 06/20/17 23:46 Dose: Not Given Benzonatate (Tessalon Perle) 100 mg PO TID PRN PRN PRN Reason: COUGH Clopidogrel Bisulfate (Plavix) 75 mg PO DAILY [facility] Last Admin: 06/21/17 08:50 Dose: 75 mg Cyanocobalamin (Vitamin B12) 1,000 mcg PO DAILY [facility] Last Admin: 06/21/17 12:03 Dose: Not Given Enoxaparin Sodium (Lovenox) 30 mg SC DAILY@1000 [facility] Last Admin: 06/21/17 12:02 Dose: Not Given Furosemide (Lasix) 80 mg PO DAILY [facility] Last Admin: 06/21/17 08:51 Dose: 80 mg Magnesium Hydroxide (Milk Of Magnesia) 30 ml PO DAILY PRN PRN Reason: Constipation Mirtazapine (Remeron) 15 mg PO QHS [facility] Last Admin: 06/20/17 23:47 Dose: Not Given Montelukast Sodium (Singulair) 10 mg PO HS [facility] Last Admin: 06/20/17 23:47 Dose: Not Given Nutritional Formula (Lactose Free) (Ensure Enlive) 120 ml PO 4X/DAY [facility] Last Admin: 06/21/17 08:45 Dose: 120 ml Potassium Chloride (K-Dur) 10 meq PO DAILY [facility] Last Admin: 06/21/17 12:02 Dose: Not Given Sodium Chloride () 5 - 30 ml IV UD PRN PRN Reason: SALINE FLUSH Medical Necessity - Tobacco Use Smoking Status: Never smoker Assessment/Plan Active and Suspected Problems Facial droop (Acute) 1. Subacute right temporal occipital CVA neuro recs DAPT for now x1 week, then oral anticoag Given moderate aortic stenosis, patient is not a candidate for novel anticoagulant. and would utilize Coumadin instead. on HIS 2. CKD 3 stable 3. Dementia unclear what patient's baseline is avoid potentiating meds no Benzodiazepines. much better today. A+Ox3. 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 4. DVT proph: LMWH
--- NOTE | 2017-06-21 13:11 | PN_ITS ---
Patient Problems: Active and Suspected Problems Facial droop (Acute) Subjective: Taking meds today. Vitals/I&O's: Vital Signs Temp Pulse Resp BP Pulse Ox 37.1 C 82 18 119/62 96 06/21/17 12:52 06/21/17 12:52 06/21/17 12:52 06/21/17 12:52 06/21/17 12:52 Oxygen Flow Rate (L/min) 2 Oxygen Delivery Method Room Air Weight: 67.2 kg Body Mass Index (BMI) 26.2 Intake and Output for Last 24 Hours 06/19/17 06/20/17 06/21/17 23:59 23:59 23:59 Intake Total 1310 / 1310 500 / 500 450 / 450 Output Total 1250 / 1250 Balance 60 / 60 500 / 500 450 / 450 General: Alert, Confused, - - pleasant. Difficultly following directions d/t presbycusis. HEENT: Atraumatic, Normocephalic Neck: No Nodes, Thyroid Normal Size and Texture Lungs: Clear to auscultation, Normal air movement, No rhonchi, No wheeze Cardiovascular: Regular rate, Regular Rhythm, Normal S1, Normal S2, No murmurs Abdomen: Bowel Sounds Present, Soft, Non Tender, Non-Distended, No Hepato- splenomegaly Extremities: No edema, No Calf Tenderness Laboratory Results 06/21/17 05:55: WBC 12.9 H, RBC 5.14, Hgb 13.0, Hct 42.2, MCV 82.1, MCH 25.3 L, MCHC 30.8 L, RDW 15.7 H, RDW Differential 47.6 H, Plt Count 228, MPV 10.7 06/21/17 05:55: Sodium 139, Potassium 3.8, Chloride 101, Carbon Dioxide 31.0, Anion Gap 7, BUN 28 H, Creatinine 1.04 H, Estim Creat Clear Calc 33.90, Est GFR (MDRD) Af Amer 65, Est GFR (MDRD) Non-Af 54 L, BUN/Creatinine Ratio 26.9 H, Glucose 104, Calcium 9.4 Current Medications Acetaminophen (Tylenol) 500 - 1,000 mg PO TID PRN PRN PRN Reason: PAIN/FEVER Last Admin: 06/20/17 18:53 Dose: 1,000 mg Albuterol/Ipratropium (Duoneb) 3 ml INHALATION Q6H.RT PRN PRN Reason: SOB &/OR WHEEZING Last Admin: 06/21/17 04:57 Dose: 3 ml Amlodipine Besylate (Norvasc) 5 mg PO DAILY [facility] Last Admin: 06/21/17 08:51 Dose: 5 mg Aspirin (Ecotrin) 81 mg PO DAILY@0800 [facility] Last Admin: 06/21/17 08:50 Dose: 81 mg Atenolol (Tenormin (Beta Gamaliel)) 50 mg PO BID [facility] Last Admin: 06/21/17 08:50 Dose: 50 mg Atorvastatin Calcium (Lipitor) 80 mg PO QHS [facility] Last Admin: 06/20/17 23:46 Dose: Not Given Benzonatate (Tessalon Perle) 100 mg PO TID PRN PRN PRN Reason: COUGH Clopidogrel Bisulfate (Plavix) 75 mg PO DAILY [facility] Last Admin: 06/21/17 08:50 Dose: 75 mg Cyanocobalamin (Vitamin B12) 1,000 mcg PO DAILY [facility] Last Admin: 06/21/17 12:03 Dose: Not Given Enoxaparin Sodium (Lovenox) 30 mg SC DAILY@1000 [facility] Last Admin: 06/21/17 12:02 Dose: Not Given Furosemide (Lasix) 80 mg PO DAILY [facility] Last Admin: 06/21/17 08:51 Dose: 80 mg Magnesium Hydroxide (Milk Of Magnesia) 30 ml PO DAILY PRN PRN Reason: Constipation Mirtazapine (Remeron) 15 mg PO QHS [facility] Last Admin: 06/20/17 23:47 Dose: Not Given Montelukast Sodium (Singulair) 10 mg PO HS [facility] Last Admin: 06/20/17 23:47 Dose: Not Given Nutritional Formula (Lactose Free) (Ensure Enlive) 120 ml PO 4X/DAY [facility] Last Admin: 06/21/17 08:45 Dose: 120 ml Potassium Chloride (K-Dur) 10 meq PO DAILY [facility] Last Admin: 06/21/17 12:02 Dose: Not Given Sodium Chloride () 5 - 30 ml IV UD PRN PRN Reason: SALINE FLUSH Medical Necessity - Tobacco Use Smoking Status: Never smoker Assessment/Plan Active and Suspected Problems Facial droop (Acute) 1. Subacute right temporal occipital CVA * neuro recs DAPT for now x1 week, then oral anticoag * Given moderate aortic stenosis, patient is not a candidate for novel anticoagulant. and would utilize Coumadin instead. * on HIS 2. CKD 3 * stable 3. Dementia * unclear what patient's baseline is * avoid potentiating meds * no Benzodiazepines. * much better today. A+Ox3. 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 4. DVT proph: * LMWH
--- NOTE | 2017-06-21 13:11 | PCM.TXEXTCAR ---
- Diet 06/18/17 17:39 Diet: Regular Diet Food consistency:: Puree Liquid Consistency:: Regular/Thin Dietary Modifications:: Pureed Diet Is pt able to select menu?: No Diet Comments: TOTAL FEED; check for left pocketing, meds crushed in applesauce - Routine Orders/Code Status Routine Lab Work: CBC, BMP, INR - every sunday and Code Status: Full Code - Therapies Physical Therapy: Eval and Treat Occupational Therapy: Eval and Treat - Problem/Diagnosis (1) Facial droop Status: Acute Current Visit: Yes (2) History of TIA (transient ischemic attack) Status: Chronic Current Visit: No (3) Hypertension Status: Chronic Current Visit: No (4) Dyslipidemia Status: Chronic Current Visit: No (5) Community acquired bacterial pneumonia Status: Acute Current Visit: No (6) History of breast cancer Status: Chronic Current Visit: No - Allergies/Procedures Done in Hospital Allergies/Adverse Reactions: Allergies diazepam [From Valium] Allergy (Verified 06/18/17 08:35) Unknown diphenhydramine HCl [From Benadryl] Allergy (Verified 06/18/17 08:35) Unknown - Type of Care/Length of Stay Estimated LOS: Convalescent Care Less Than 30 days Type of Care Needed: Skilled Rehab Potential: Fair Prognosis: Fair - Additional Orders/Day of Discharge Day of Discharge: 06/21/17 - Dietary and Speech Recommendations Dietitian Recommendations/Changes: When medically able, rec VEENA to Cardiac d/t pmhx - consistency per RIB BENDER. When diet advanced, rec Ensure Enlive 120 cc 4x/day at [facility] for increased nutrition if consumed. - Follow Up Care Primary Care Physician: Philippe Muñoz MD [Primary Care Provider] - Within 2 Weeks Please Follow Up With: [place]lick [place]aud [place] [facility] [place] When: 1-2 months
--- NOTE | 2017-06-21 13:13 | PCM.DC.SUM ---
Discharge Date and Diagnosis - Problem List Patient Problems: Active and Suspected Problems CVA (cerebral vascular accident) (Acute) Date of Admission: 06/18/17 Date of Discharge: 06/21/17 - Primary Discharge Diagnosis Active and Suspected Problems Facial droop (Acute) - Secondary Discharge Diagnosis Chronic Problems History of TIA (transient ischemic attack) (Chronic) Hypertension (Chronic) Dyslipidemia (Chronic) Colostomy in place (Chronic) History of breast cancer (Chronic) Hospital Course and Treatment Imaging Results: Clinical Impression(s) from Imaging Studies Brain CT 06/18/17 08:58 IMPRESSION: No acute intracranial abnormality. Bilateral chronic infarcts. Electronically Signed: Hanane Summers MD at 10:08 EDT Tel , Service support , Chest X-Ray 06/18/17 09:33 IMPRESSION: Degenerative changes, as described above. No demonstrated acute cardiopulmonary process. No interval change Electronically Signed: Rickey Cabrera MD at 10:19 EDT , Service support , Brain MRI 06/19/17 08:00 IMPRESSION: Right temporal occipital edema. Leading Differential consideration is subacute infarct. Follow-up to document typical evolution is recommended. N.B. : The above information has been verbally conveyed by Hannae Summers MD to Dr. Eisenberg, Covering Physician, on 06/19/2017 12:05:53 (ET). Electronically Signed: Hanane Summers MD at 12:06 EDT Tel , Service support , N.B. : The above information has been verbally conveyed by Hanane Summers MD to Dr. Eisenberg, Covering Physician, on 06/19/2017 12:05:53 (ET). Head MRA 06/19/17 08:00 IMPRESSION: Right P2 occlusion. Right M1 occlusion. Left A2 occlusion. Electronically Signed: Hanane Summers MD at 12:06 EDT Tel , Service support , rita Michaud Operations: None Procedures: 2-D Echocardiogram Summary of Care Provided: The patient is a 82 year old F presents from the retirement and found with left facial droop and slurred spelled speech by the staff at the extended care facility. Patient was brought in and was noted to have left-sided neglect. Patient underwent an MRI that showed an a subacute right sided temporal and occipital stroke. Patient's symptoms did improve patient was confused. Unclear what the actual patient's baseline is but patient actually did improve during the course of her hospitalization. Given a stroke, is neurology's recommendation that she be on dual antiplatelet therapy for a week and then to transition over to anticoagulants. She does have known paroxysmal atrial fibrillation which could be an etiology of the stroke. Patient given mitral stenosis will be transitioned over to Coumadin rather than the novel anticoagulants. Patient will be discharged to halfway facility in stable condition. [] Discharge Diet: Low fat/ Low Cholesterol Discharge Activity: Return to Normal Activity Call your doctor if you observe: Fever of 101 or Higher, - - worsening weakness. worsening confusion. Home Medications: Medications to take at Discharge Atenolol [Tenormin (beta denita)] 25 mg PO BID 02/10/13 Cyanocobalamin (Vitamin B-12) [Vitamin B-12] 1,000 mcg PO DAILY 02/10/16 Benzonatate [Tessalon Perle] 100 mg PO TID PRN PRN 05/09/16 Albuterol Inhaler [Ventolin Hfa] 1 - 2 puff INHALATION Q4H PRN PRN #1 inhaler 05/10/16 Acetaminophen [Mapap] 1,000 mg PO TID PRN PRN 10/05/16 Montelukast Sodium [Singulair] 10 mg PO QHS 10/05/16 Potassium Chloride [K-Dur] 10 meq PO DAILY 10/05/16 Saliva Stimulant [Biotene Moisturizing Mouth] 1 spray MM QHS PRN 10/05/16 Torsemide [Demadex] 40 mg PO DAILY 10/05/16 Amlodipine [Norvasc] 5 mg PO DAILY 06/18/17 Calcitriol [Rocaltrol] 0.25 mcg PO DAILY 06/18/17 Aspirin E.C. [Ecotrin] 81 mg PO DAILY@0800 tablet 06/21/17 Atorvastatin Calcium [Lipitor] 40 mg PO QHS tablet 06/21/17 Clopidogrel Bisulfate [Plavix] 75 mg PO DAILY #0 06/21/17 Warfarin Sodium [Coumadin] 5 mg PO DAILY #1 tablet 06/21/17 Following Prescrptions Were Given to Patient: Warfarin Sodium [Coumadin] 5 mg PO DAILY #1 tablet Primary Care Physician: Philippe Muñoz MD [Primary Care Provider] - Within 2 Weeks Please Follow Up With: Slick Michaud [place] [facility] [place] When: 1-2 months Disposition: Snf facility Minutes spent on discharge:: 32 Patient Condition:: Fair Medical Necessity - Tobacco Use Smoking Status: Never smoker Meaningful Use Info Meaningful Use Diagnoses (Choose all that apply): Ischemic CVA - CVA Therapy Assessed for PT,OT and/or ST?: Yes - Ischemic Stroke Antithrombotic order at d/c?: Yes Dx of Atrial fib/flutter?: Yes Anticoagulant at discharge?: No Reason anticoagulant not ordered: Procedure not Indicated Statins at discharge?: Yes Primary Dx Acute Ischemic CVA?: Yes IV tPA ordered during stay?: No Reason IV t-PA not ordered: Procedure not Indicated Code Visit Inpatient E&M: 68334 Disch Hosp
--- NOTE | 2017-06-21 13:17 | DS.PCM_ITS ---
Discharge Date and Diagnosis - Problem List Patient Problems: Active and Suspected Problems CVA (cerebral vascular accident) (Acute) Date of Admission: 06/18/17 Date of Discharge: 06/21/17 - Primary Discharge Diagnosis Active and Suspected Problems Facial droop (Acute) - Secondary Discharge Diagnosis Chronic Problems History of TIA (transient ischemic attack) (Chronic) Hypertension (Chronic) Dyslipidemia (Chronic) Colostomy in place (Chronic) History of breast cancer (Chronic) Hospital Course and Treatment Imaging Results: Clinical Impression(s) from Imaging Studies Brain CT 06/18/17 08:58 IMPRESSION: No acute intracranial abnormality. Bilateral chronic infarcts. Electronically Signed: Hanane Summers MD at 10:08 EDT Tel , Service support , Chest X-Ray 06/18/17 09:33 IMPRESSION: Degenerative changes, as described above. No demonstrated acute cardiopulmonary process. No interval change Electronically Signed: Rickey Cabrera MD at 10:19 EDT , Service support , Brain MRI 06/19/17 08:00 IMPRESSION: Right temporal occipital edema. Leading Differential consideration is subacute infarct. Follow-up to document typical evolution is recommended. N.B. : The above information has been verbally conveyed by Hanane Summers MD to Dr. Eisenberg, Covering Physician, on 06/19/2017 12:05:53 (ET). Electronically Signed: Hanane Summers MD at 12:06 EDT Tel , Service support , N.B. : The above information has been verbally conveyed by Hanane Summers MD to Dr. Eisenberg, Covering Physician, on 06/19/2017 12:05:53 (ET). Head MRA 06/19/17 08:00 IMPRESSION: Right P2 occlusion. Right M1 occlusion. Left A2 occlusion. Electronically Signed: Hanane Smumers MD at 12:06 EDT Tel , Service support , rita Michaud Operations: None Procedures: 2-D Echocardiogram Summary of Care Provided: The patient is a 82 year old F presents from the [facility] and found with left facial droop and slurred spelled speech by the staff at the extended care facility. Patient was brought in and was noted to have left-sided neglect. Patient underwent an MRI that showed an a subacute right sided temporal and occipital stroke. Patient's symptoms did improve patient was confused. Unclear what the actual patient's baseline is but patient actually did improve during the course of her hospitalization. Given a stroke, is neurology's recommendation that she be on dual antiplatelet therapy for a week and then to transition over to anticoagulants. She does have known paroxysmal atrial fibrillation which could be an etiology of the stroke. Patient given mitral stenosis will be transitioned over to Coumadin rather than the novel anticoagulants. Patient will be discharged to detention facility in stable condition. [] Discharge Diet: Low fat/ Low Cholesterol Discharge Activity: Return to Normal Activity Call your doctor if you observe: Fever of 101 or Higher, - - worsening weakness. worsening confusion. Home Medications: Medications to take at Discharge Atenolol [Tenormin (beta denita)] 25 mg PO BID 02/10/13 Cyanocobalamin (Vitamin B-12) [Vitamin B-12] 1,000 mcg PO DAILY 02/10/16 Benzonatate [Tessalon Perle] 100 mg PO TID PRN PRN 05/09/16 Albuterol Inhaler [Ventolin Hfa] 1 - 2 puff INHALATION Q4H PRN PRN #1 inhaler Acetaminophen [Mapap] 1,000 mg PO TID PRN PRN 10/05/16 Montelukast Sodium [Singulair] 10 mg PO QHS 10/05/16 Potassium Chloride [K-Dur] 10 meq PO DAILY 10/05/16 Saliva Stimulant [Biotene Moisturizing Mouth] 1 spray MM QHS PRN 10/05/16 Torsemide [Demadex] 40 mg PO DAILY 10/05/16 Amlodipine [Norvasc] 5 mg PO DAILY 06/18/17 Calcitriol [Rocaltrol] 0.25 mcg PO DAILY 06/18/17 Aspirin E.C. [Ecotrin] 81 mg PO DAILY@0800 tablet 06/21/17 Atorvastatin Calcium [Lipitor] 40 mg PO QHS tablet 06/21/17 Clopidogrel Bisulfate [Plavix] 75 mg PO DAILY #0 06/21/17 Warfarin Sodium [Coumadin] 5 mg PO DAILY #1 tablet 06/21/17 Following Prescrptions Were Given to Patient: Warfarin Sodium [Coumadin] 5 mg PO DAILY #1 tablet Primary Care Physician: Philippe Muñoz MD [Primary Care Provider] - Within 2 Weeks Please Follow Up With: Slick Michadu [place] - [facility] [place]. When: 1-2 months Disposition: [facility] facility Minutes spent on discharge:: 32 Patient Condition:: Fair Medical Necessity - Tobacco Use Smoking Status: Never smoker Meaningful Use Info Meaningful Use Diagnoses (Choose all that apply): Ischemic CVA - CVA Therapy Assessed for PT,OT and/or ST?: Yes - Ischemic Stroke Antithrombotic order at d/c?: Yes Dx of Atrial fib/flutter?: Yes Anticoagulant at discharge?: No Reason anticoagulant not ordered: Procedure not Indicated Statins at discharge?: Yes Primary Dx Acute Ischemic CVA?: Yes IV tPA ordered during stay?: No Reason IV t-PA not ordered: Procedure not Indicated Code Visit Inpatient E&M: 57694 Disch Hosp
--- NOTE | 2017-06-21 14:40 | CASEMGMT ---
Social Work Pt has been discharged. Met with pt in room and informed that she would be transferred to [facility] today. [place] [facility] [place]. Alissa at [facility] notified of d/c time and orders faxed. Phone call to [facility] and notified that pt will be going to [facility]. No further d/c needs. KRISHNA Treadwell
--- NOTE | 2017-06-21 15:39 | NURSING ---
CALLED REPORT TO KAVIN GRIGSBY AT [place]
== END 2017-06-21 15:35 | disposition skilled nursing facility (03) | DRG 65 ==
LOC: ED 11:03 → PCU 11:11
PROVIDERS: Nurse Practitioner Family; Emergency Provider Emergency Medicine; Family Provider Family Medicine; PCP Family Medicine
DX: I63.531 Cerebral infarction due to unspecified occlusion or stenosis of right posterior cerebral artery (principal); R41.4 Neurologic neglect syndrome; G81.94 Hemiplegia, unspecified affecting left nondominant side; N18.3 Chronic kidney disease, stage 3 (moderate); I12.9 Hypertensive chronic kidney disease with stage 1 through stage 4 chronic kidney disease, or unspecified chronic kidney disease; E78.5 Hyperlipidemia, unspecified; Z93.3 Colostomy status; Z85.3 Personal history of malignant neoplasm of breast; R29.707 NIHSS score 7; R29.810 Facial weakness; R47.81 Slurred speech; Z68.26 Body mass index [BMI] 26.0-26.9, adult; I48.0 Paroxysmal atrial fibrillation; I25.10 Atherosclerotic heart disease of native coronary artery without angina pectoris; F03.90 Unspecified dementia, unspecified severity, without behavioral disturbance, psychotic disturbance, mood disturbance, and anxiety; I25.2 Old myocardial infarction
CPT/HCPCS: 36415; 70450; 70544; 70551; 71045; 80048; 80061; 81001; 82962; 84484; 85025; 85027; 85610; 85730; 92526; 93005; 93306; 94640; 97110; 97163; 97166; 97530; 99285; J7030; A4216

== ENCOUNTER 2017-11-29 12:53 | Inpatient (IN) | payer MEDICARE, SELFPAY ==
[2017-11-29 12:53] VITALS: BP 151/93; PULSE 122; RESP 31; TEMP 37; O2SAT 98; BMI 18.7
[2017-11-29 13:11] LABS: Bedside Glucose 147 mg/dL (70-110)
[2017-11-29] MEDS: Ondansetron 4 MG/2 ML Vial IM (13:16)
[2017-11-29] MEDS: Morphine 2 MG/ML Syringe IV (13:16)
--- NOTE | 2017-11-29 13:38 | NURSING ---
DR EMERSON KRAUS
[2017-11-29 13:56] VITALS: BP 104/69; PULSE 103; RESP 26; O2SAT 95
--- NOTE | 2017-11-29 14:01 | NURSING ---
MED SURG OLEGHE ACUTE ENCEPHALOPATHY, HCAP, RESP FAILURE, ? TERMINAL
[2017-11-29 14:16] VITALS: BMI 18.7
--- NOTE | 2017-11-29 14:25 | CM.ED ---
Court hearing for legal guardianship is pending for December 04, 2017. Pending legal guardian is commercial attorney, Khang Sarkar. Call placed to Mr. Sarkar at this time.
[2017-11-29 14:28] VITALS: BP 112/59; PULSE 105; RESP 27; O2SAT 89
--- NOTE | 2017-11-29 14:47 | CM.ED ---
Optical Worker, Khang Sarkar, returned call. He states that he used to be the patient's neighbor. He states that he does not know the patient's wishes regarding end of life.
[2017-11-29 15:00] VITALS: BP 88/48; PULSE 120; RESP 22; O2SAT 77
--- NOTE | 2017-11-29 15:16 | PCM.HP.STD ---
Problem List (1) Acute encephalopathy Status: Acute (2) Acute respiratory failure with hypoxia Status: Acute (3) HCAP (healthcare-associated pneumonia) Status: Acute History of Present Illness Date of Admission: 11/29/17 Chief Complaint: altered and depressed mental status The patient is a 82 year old F with dementia and recent CVA and who resides in halfway. Due to current encephalopathy with stupor patient is unable to provide a history. History was obtained over the telephone from nursing staff (Velia) at [facility] where patient resides and from the office clerk assistant occupational health nursing director, both of whom are quite familiar with the patient and all the care she has deric receiving. For the last few weeks mental status, cognition and overall functional status has been markedly deteriorating. About 10 days ago was diagnosed with pneumonia after she developed a cough and CXR showed the same. Was treated with IV Ceftriaxone after a PICC line was placed but has not quite responded and has continued to decline. Patient no longer eating either. As her respiratory status worsened she was sent to the ED today as her code status is DNRCCA. [] Past Medical History Past Medical History (Chronic Problems): Chronic Problems History of TIA (transient ischemic attack) (Chronic) Hypertension (Chronic) Dyslipidemia (Chronic) Colostomy in place (Chronic) History of breast cancer (Chronic) Allergies diazepam [From Valium] Allergy (Verified 11/29/17 12:59) Unknown diphenhydramine HCl [From Benadryl] Allergy (Verified 11/29/17 12:59) Unknown Home Medications: Ambulatory Orders Medication Instructions Recorded Benzonatate [Tessalon Perle] 100 mg PO TID PRN PRN 05/09/16 Montelukast Sodium [Singulair] 10 mg PO QHS 10/05/16 Saliva Stimulant [Biotene 1 spray MM QHS PRN 10/05/16 Moisturizing Mouth] Amlodipine [Norvasc] 5 mg PO DAILY 06/18/17 Albuterol Sulfate 1.25 mg IH 4X/DAY 11/29/17 Atenolol [Tenormin (beta denita)] 25 mg PO BID 11/29/17 Atorvastatin Calcium 40 mg PO DAILY 11/29/17 Ceftriaxone Sodium [Ceftriaxone] 1 gm IV DAILY 11/29/17 Lactobacillus Acidophilus 1 cap PO DAILY 11/29/17 [Acidophilus] Memantine HCl [Namenda Xr] 28 mg PO DAILY 11/29/17 Mirtazapine 15 mg PO DAILY 11/29/17 Omeprazole [Prilosec] 20 mg PO BID 11/29/17 Potassium Chloride 20 meq PO DAILY 11/29/17 Trazodone HCl 25 mg PO QHS 11/29/17 traMADol [Ultram (G)] 50 mg PO Q6H PRN PRN 11/29/17 Surgical History: mastectomy Smoking Status: Never smoker - *Family History Maternal History Items: No pertinent history, - - unable to obtain given confusion. Paternal History Items: No pertinent history, - Review of Systems Constitutional: Reports: Anorexia, Malaise, Weakness, Fatigue Comment: limited ability to obtained due to impaired mental status VTE Information - Inpt Only VTE Present on Admission: No VTE Pharm Prophylaxis ordered?: Yes Patient Problems: Active and Suspected Problems Acute encephalopathy (Acute) Acute respiratory failure with hypoxia (Acute) HCAP (healthcare-associated pneumonia) (Acute) - Physical Exam General: - - stuporous and lethargic, mouth breathing HEENT: - - mouth breathing, oral mucosa very dry Oral: Dry Mucosa, Ulcerations Present Neck: Supple, No JVD Lungs: Rales, Rhonchi, Short of Breath, Using Accessory Muscles, - - transmitted sounds and reduced air entry in th left hemithorax Cardiovascular: Normal S1, Normal S2, Tachycardic Abdomen: - - moves with respiration Extremities: No edema Skin: - - skin dry and thin with loss of turgor Neurological: - - stuporous and not responsive, winces to sternal pressure Vital Signs Temp Pulse Resp BP Pulse Ox 98.6 F 120 H 22 H 88/48 L 77 11/29/17 12:53 11/29/17 15:00 11/29/17 15:00 11/29/17 15:00 11/29/17 15:00 Oxygen Flow Rate (L/min) 6 Oxygen Delivery Method Nasal Cannula Weight: 48 kg Body Mass Index (BMI) 18.7 Finger Stick Blood Glucose 147 POC Glucose 11/29/17 13:05 POC Glucose 147 H Assessment/Plan All Active Problems Acute encephalopathy (Acute) Acute respiratory failure with hypoxia (Acute) HCAP (healthcare-associated pneumonia) (Acute) CVA (cerebral vascular accident) (Acute) Facial droop (Acute) Head injury, closed (Acute) Community acquired bacterial pneumonia (Acute) 1. Acute encephalopathy. Secondary to severe sepsis and hypoxia Patient is terminal from severe and advanced dementia with extremely poor quality of life baseline. D/w ED physician and code status has been changed to DNRCC. Plan is to keep patient comfortable - oxygen, morphine for dyspnea, benzodiazepines for anxiety and agitation. Will consult palliative care/hospice 2. Severe sepsis 3. Healthcare Associated Pneumonia 4. Acute hypoxic respiratory failure secondary to pneumonia 5. Severe and advanced dementia. Alzheimer + Vascular given strokes 6. cerebrovascular disease with h/o recent right occipital and parietal strokes Code Visit Inpatient E&M: 31812 Init Hosp L3
[2017-11-29 15:17] VITALS: BMI 18.6
[2017-11-29 15:21] VITALS: BP 99/50; PULSE 117; RESP 32; TEMP 36.4; O2SAT 70
--- NOTE | 2017-11-29 15:24 | ED.VISSUMM ---
- ER Visit Summary Date of Service: 11/29/17 Chief Complaint: Respiratory failure History of Present Illness: The patient is a 82 F who is from [facility]. Patient has a signed DNR Comfort Care arrest paperwork by nurse practitioner. The patient has been being treated recently for pneumonia and today was found to be unresponsive. EMS states they were performing bagged respirations in route to the hospital. Patient was not responsive for them. The patient reportedly has no family and no power of family law attorney. There is a note from the half-way that in 5 days a claims account specialist is petitioning the court to become the POA. She had a stroke in June and has progressively declined since. Per the half-way she is essentially nonverbal and cannot feed herself. The patient herself is unable to give me any history. Physical Examination: Patient is tachycardic, hypotensive, hypoxic, and has agonal labored respirations Gen: well-developed appears elderly, frail, and thin Head: Normocephalic atraumatic Eyes: Minimal corneal reflex. Pupils are Db. ENT: TMs clear no rhinorrhea dry mucous membranes Neck: Supple no lymphadenopathy no JVD nontender CVS: Irregularly irregular tachycardic rhythm no murmurs normal S1-S2 Respiratory: Labored almost agonal respirations with audible rhonchi/rales Abdomen: Soft nontender nondistended normal bowel sounds no masses Back: Nontender Extremity: Nontender no edema Skin: Normal color no rash Neuro: Patient did at one point open her eyes to sternal rub. Emergency Department Course and Treatment: Patient received morphine and Robinul and Zofran. I spoke with our admitting hospitalist Dr. Heart, Dr. Causey, and Dr. Spence as well as consulting with social work. Patient was made DNR Comfort Care only as I believe this to be a terminal event. She will be admitted for comfort care measures Impression: 1. Acute respiratory failure This note was generated with [employer] dictation software. It may contain incorrect words, spelling, and punctuation that were not noted in review of the chart prior to signing ED Disposition - Plan for ED Patient: Disposition: Acute Care Hospital [facility] Chief Complaint: Alt LOC
--- NOTE | 2017-11-29 15:25 | HP.PCM_ITS ---
Problem List (1) Acute encephalopathy Status: Acute (2) Acute respiratory failure with hypoxia Status: Acute (3) HCAP (healthcare-associated pneumonia) Status: Acute History of Present Illness Date of Admission: 11/29/17 Chief Complaint: altered and depressed mental status The patient is a 82 year old F with dementia and recent CVA and who resides in [facility]. Due to current encephalopathy with stupor patient is unable to provide a history. History was obtained over the telephone from nursing staff (Velia) at [facility] where patient resides and from the assistant director of financial aid vocational nursing instructor, both of whom are quite familiar with the patient and all the care she has deric receiving. For the last few weeks mental status, cognition and overall functional status has been markedly deteriorating. About 10 days ago was diagnosed with pneumonia after she developed a cough and CXR showed the same. Was treated with IV Ceftriaxone after a PICC line was placed but has not quite responded and has continued to decline. Patient no longer eating either. As her respiratory status worsened she was sent to the ED today as her code status is DNRCCA. [] Past Medical History Past Medical History (Chronic Problems): Chronic Problems History of TIA (transient ischemic attack) (Chronic) Hypertension (Chronic) Dyslipidemia (Chronic) Colostomy in place (Chronic) History of breast cancer (Chronic) Allergies diazepam [From Valium] Allergy (Verified 11/29/17 12:59) Unknown diphenhydramine HCl [From Benadryl] Allergy (Verified 11/29/17 12:59) Unknown Home Medications: Ambulatory Orders Medication Instructions Recorded Benzonatate [Tessalon Perle] 100 mg PO TID PRN PRN 05/09/16 Montelukast Sodium [Singulair] 10 mg PO QHS 10/05/16 Saliva Stimulant [Biotene 1 spray MM QHS PRN 10/05/16 Moisturizing Mouth] Amlodipine [Norvasc] 5 mg PO DAILY 06/18/17 Albuterol Sulfate 1.25 mg IH 4X/DAY 11/29/17 Atenolol [Tenormin (beta denita)] 25 mg PO BID 11/29/17 Atorvastatin Calcium 40 mg PO DAILY 11/29/17 Ceftriaxone Sodium [Ceftriaxone] 1 gm IV DAILY 11/29/17 Lactobacillus Acidophilus 1 cap PO DAILY 11/29/17 [Acidophilus] Memantine HCl [Namenda Xr] 28 mg PO DAILY 11/29/17 Mirtazapine 15 mg PO DAILY 11/29/17 Omeprazole [Prilosec] 20 mg PO BID 11/29/17 Potassium Chloride 20 meq PO DAILY 11/29/17 Trazodone HCl 25 mg PO QHS 11/29/17 traMADol [Ultram (G)] 50 mg PO Q6H PRN PRN 11/29/17 Surgical History: mastectomy Smoking Status: Never smoker - *Family History Maternal History Items: No pertinent history, - - unable to obtain given confusion. Paternal History Items: No pertinent history, - Review of Systems Constitutional: Reports: Anorexia, Malaise, Weakness, Fatigue Comment: limited ability to obtained due to impaired mental status VTE Information - Inpt Only VTE Present on Admission: No VTE Pharm Prophylaxis ordered?: Yes Patient Problems: Active and Suspected Problems Acute encephalopathy (Acute) Acute respiratory failure with hypoxia (Acute) HCAP (healthcare-associated pneumonia) (Acute) - Physical Exam General: - - stuporous and lethargic, mouth breathing HEENT: - - mouth breathing, oral mucosa very dry Oral: Dry Mucosa, Ulcerations Present Neck: Supple, No JVD Lungs: Rales, Rhonchi, Short of Breath, Using Accessory Muscles, - - transmitted sounds and reduced air entry in th left hemithorax Cardiovascular: Normal S1, Normal S2, Tachycardic Abdomen: - - moves with respiration Extremities: No edema Skin: - - skin dry and thin with loss of turgor Neurological: - - stuporous and not responsive, winces to sternal pressure Vital Signs Temp Pulse Resp BP Pulse Ox 98.6 F 120 H 22 H 88/48 L 77 11/29/17 12:53 11/29/17 15:00 11/29/17 15:00 11/29/17 15:00 11/29/17 15:00 Oxygen Flow Rate (L/min) 6 Oxygen Delivery Method Nasal Cannula Weight: 48 kg Body Mass Index (BMI) 18.7 Finger Stick Blood Glucose 147 POC Glucose 11/29/17 13:05 POC Glucose 147 H Assessment/Plan All Active Problems Acute encephalopathy (Acute) Acute respiratory failure with hypoxia (Acute) HCAP (healthcare-associated pneumonia) (Acute) CVA (cerebral vascular accident) (Acute) Facial droop (Acute) Head injury, closed (Acute) Community acquired bacterial pneumonia (Acute) 1. Acute encephalopathy. Secondary to severe sepsis and hypoxia Patient is terminal from severe and advanced dementia with extremely poor quality of life baseline. D/w ED physician and code status has been changed to DNRCC. Plan is to keep patient comfortable - oxygen, morphine for dyspnea, benzodiazepines for anxiety and agitation. Will consult palliative care/hospice 2. Severe sepsis 3. Healthcare Associated Pneumonia 4. Acute hypoxic respiratory failure secondary to pneumonia 5. Severe and advanced dementia. Alzheimer + Vascular given strokes 6. cerebrovascular disease with h/o recent right occipital and parietal strokes Code Visit Inpatient E&M: 45060 Init Hosp L3
--- NOTE | 2017-11-29 15:33 | ED.DCSUM_ITS ---
- ER Visit Summary Date of Service: 11/29/17 Chief Complaint: Respiratory failure History of Present Illness: The patient is a 82 F who is from [facility]. Patient has a signed DNR Comfort Care arrest paperwork by nurse practitioner. The patient has been being treated recently for pneumonia and today was found to be unresponsive. EMS states they were performing bagged respirations in route to the hospital. Patient was not responsive for them. The patient reportedly has no family and no power of deputy attorney general. There is a note from the skilled nursing that in 5 days a legislative advocate is petitioning the court to become the POA. She had a stroke in June and has progressively declined since. Per the skilled nursing she is essentially nonverbal and cannot feed herself. The patient herself is unable to give me any history. Physical Examination: Patient is tachycardic, hypotensive, hypoxic, and has agonal labored respirations Gen: well-developed appears elderly, frail, and thin Head: Normocephalic atraumatic Eyes: Minimal corneal reflex. Pupils are Db. ENT: TMs clear no rhinorrhea dry mucous membranes Neck: Supple no lymphadenopathy no JVD nontender CVS: Irregularly irregular tachycardic rhythm no murmurs normal S1-S2 Respiratory: Labored almost agonal respirations with audible rhonchi/rales Abdomen: Soft nontender nondistended normal bowel sounds no masses Back: Nontender Extremity: Nontender no edema Skin: Normal color no rash Neuro: Patient did at one point open her eyes to sternal rub. Emergency Department Course and Treatment: Patient received morphine and Robinul and Zofran. I spoke with our admitting hospitalist Dr. Heart, Dr. Causey, and Dr. Spence as well as consulting with social work. Patient was made DNR Comfort Care only as I believe this to be a terminal event. She will be admitted for comfort care measures Impression: 1. Acute respiratory failure This note was generated with [employer] dictation software. It may contain incorrect words, spelling, and punctuation that were not noted in review of the chart prior to signing ED Disposition - Plan for ED Patient: Disposition: Acute Care Hospital [facility] Chief Complaint: Alt LOC
--- NOTE | 2017-11-29 15:36 | NURSING ---
Call/message placed to Khang Sarkar [phone] Guardian of Pt. Updated given on pt's status and call back number left.
--- NOTE | 2017-11-29 15:49 | NURSING ---
hospice notified of consult
[2017-11-29 15:50] VITALS: O2SAT 72
--- NOTE | 2017-11-29 15:53 | CPS ---
Low sats discussed with nurse and charge nurse. Patient now a DNR-CC. Left O2 on for comfort only.
--- NOTE | 2017-11-29 15:53 | NURSING ---
page sent to Dr. Heart requesting clarification on code status, new DNR form on chart states DNRCC. order is DNRCCA. also asking for VSA override. returned called, discussed DNR status, current vitals, and override. aware he will place order.
--- NOTE | 2017-11-29 15:56 | PCA ---
Faxed patient demographics and history/physical to [facility] at [phone]
--- NOTE | 2017-11-29 15:59 | CHAPLAIN ---
Type of Pastoral Visit ___ Initial Visit ___ Follow-up Visit ___ On-call Visit ___ General Patient Visit ___ Spiritual Assessment ___ Family Conference ___ Bereavement ___ Rapid Response ___ Code Blue _x__ Other (describe below) Pastoral Care Referral From ___ Patient ___ Family ___ Nurse ___ Physician ___ Animation Director _x__ Steam Fitter ___ Other (describe below) Sacrament/Intervention ___ Active listening ___ Anointing ___ Yazidism ___ Bereavement ___ Communion ___ Olesya exploration ___ ___ Life review _x__ Prayer ___ Reconciliation ___ Sacrament of Sick _x__ Supportive presence ___ Wedding ___ Other (describe below) Pastoral Comments patient is unresponsive and without family or loved ones; quoted Psalm 23 and said prayers for patient; stayed at bedside for several minutes to offer presence and silent prayers
--- NOTE | 2017-11-29 16:35 | CASEMGMT ---
Social Work Note JOSE ANGEL spoke with SEB Berger at [facility]. SEB Berger states she is aware that pt's guardianship court date has been assigned for December 04, 2017 and she is currently reviewing the case with her coworkers to determine how they are going to handle pt's case. Per previous notes, pt is unresponsive and unable to make decisions for herself. Pt had completed revocation of her POA without completing new documents. SW placed a call to Probate Court and a message was left for someone who is handling pt's case to give this worker a call back to see about emergency guardianship for pt. SW waiting for call back from Probate Court. This SW is unsure of Probate Court hours though and they may have closed for the day. JOSE ANGEL will continue to follow along to assist with discharge planning. Pt is from [place]. Plan: JORGE Ratliff [employer], SHOE CLEANER
--- NOTE | 2017-11-29 16:43 | NURSING ---
message left with next of kin notifying them of pt's passing. call back number provided.
--- NOTE | 2017-11-30 06:46 | NURSING ---
ye narayanan called back this am and has been notified that pt 11/29, he was to be appointed guardian of pt next week and doesnt have home information, [facility]. Called [facility], spoke to nurse Pierson and no home is listed. No other contact information is available. The contact center director (Hernandez)for [facility] may have more information when she comes in to work. updated dayshift charge nurse of above
--- NOTE | 2017-12-03 09:51 | PCM.DEATH ---
Preliminary Cause of Respiratory failure Date of Admission: 11/29/17 Date of : 11/29/17 - Principle Diagnosis Acute Hypoxic respiratory failure Problem List: Acute hypoxic respiratory failure Healthcare associate bacterial pneumonia Acute encephalopathy Hospital Course Admitted to the hospital on 11/29/17 from the skilled nursing with severe bacterial pneumonia and encephalopathy as patient had become stuporous and obtunded. Patient had severe dementia which over the prior weeks to months had been progressively worsening and quality of life had become quite poor. Code status which was initially DNRCCA was eventually changed to DNRCC and patient made hospice care. Comfort was provided with supplemental Oxygen and morphine and Ativan for anxiety and spiritual support provided as well. Within a few hours after admission, patient eventually succumbed to her illness and at 16:36. detention was informed. Code Visit OBSV E&M: [id number] Observ/hosp same date L1
--- NOTE | 2017-12-03 09:55 | EXP.PCM_ITS ---
Preliminary Cause of Respiratory failure Date of Admission: 11/29/17 Date of : 11/29/17 - Principle Diagnosis Acute Hypoxic respiratory failure Problem List: Acute hypoxic respiratory failure Healthcare associate bacterial pneumonia Acute encephalopathy Hospital Course [facility] bacterial pneumonia and encephalopathy as patient had become stuporous and obtunded. Patient had severe dementia which over the prior weeks to months had been progressively worsening and quality of life had become quite poor. Code status which was initially DNRCCA was eventually changed to DNRCC and patient made hospice care. Comfort was provided with supplemental Oxygen and morphine and Ativan for anxiety and spiritual support provided as well. Within a few hours after admission, patient eventually succumbed to her illness and at 16:36. senior living was informed. Code Visit OBSV E&M: [id number] Observ/hosp same date L1
== END 2017-11-29 16:36 | DRG 871 ==
LOC: ED 13:05 → MS3 15:11
PROVIDERS: Admitting Provider Internal Medicine; Emergency Provider Emergency Medicine; Family Provider Family Medicine; PCP Family Medicine; Visit Provider Internal Medicine
DX: A41.9 Sepsis, unspecified organism (principal); J18.9 Pneumonia, unspecified organism; J96.01 Acute respiratory failure with hypoxia; G93.41 Metabolic encephalopathy; R65.20 Severe sepsis without septic shock; Y95 Nosocomial condition; Z66 Do not resuscitate; G30.9 Alzheimer's disease, unspecified; F02.80 Dementia in other diseases classified elsewhere, unspecified severity, without behavioral disturbance, psychotic disturbance, mood disturbance, and anxiety; F01.50 Vascular dementia, unspecified severity, without behavioral disturbance, psychotic disturbance, mood disturbance, and anxiety
CPT/HCPCS: 82962; 99283; J7030; J2405